=== PATIENT | male | born 1955 | race Caucasian/White ===

== ENCOUNTER 2022-08-07 07:50 | Outpatient (CLI) | payer OTHER, SELFPAY ==
--- NOTE | 2022-08-07 08:59 | PFTS_ITS ---
Date of Study:08/07/22 Date of Dictation: MECHANICS: Forced vital capacity (FVC) is . Forced expiratory volume in one second (FEV1) is . FEV1/FVC is . FLOW VOLUME LOOP: . LUNG VOLUMES: Total lung capacity (TLC) is . Residual volume (RV) is . DIFFUSING CAPACITY FOR CARBON MONOXIDE: . INTERPRETATION: The pulmonary function tests are . mechanics and lung volumes. Gas exchange (DLCO) is . MTDD
--- NOTE | 2022-08-07 14:25 | PFTS_ITS ---
Date of Study:08/07/22 Date of Dictation: MECHANICS: Forced vital capacity (FVC) is normal. Forced expiratory volume in one second (FEV1) is normal. FEV1/FVC is normal. FLOW VOLUME LOOP: Normal. LUNG VOLUMES: Total lung capacity (TLC) is normal. Residual volume (RV) is normal. DIFFUSING CAPACITY FOR CARBON MONOXIDE: Normal. INTERPRETATION: The prebronchodilator spirometry is normal. No postbronchodilator spirometry was performed. Lung volumes are normal. Gas exchange (DLCO) is normal. MTDD
== END 2022-08-07 07:51 | disposition home or self-care (01) ==
LOC: RT 07:51
PROVIDERS: PCP Electrodiagnostic Medicine; Visit Provider Electrodiagnostic Medicine
DX: R06.09 Other forms of dyspnea (principal)
CPT/HCPCS: 94010; 94726; 94729

== ENCOUNTER 2024-08-23 08:58 | Outpatient (CLI) | payer OTHER, SELFPAY | END 2024-08-23 08:59 | disposition home or self-care (01) | LOC: SLEEP 09:03 | PROVIDERS: PCP Electrodiagnostic Medicine; Visit Provider Electrodiagnostic Medicine | DX: G47.33 Obstructive sleep apnea (adult) (pediatric) (principal) | CPT/HCPCS: G0399 ==

== ENCOUNTER 2025-06-15 11:51 | Emergency (ER) | payer MEDICARE, BC, SELFPAY ==
--- OUTSIDE RECORDS SUMMARY | 2025-06-15 11:58 | XMS_ITS | Encounter Summary ---
Author Organization [facility] Address [address] [place] [address] Care Team Providers Care Pump House Technician Name Role Phone Vilma Harry MD Primary Care Provider Unavail able Encounter Details Date Type Department Care Team (Late st Contact Info) Description 05/17/2016 Lab Requisition [facility] Laboratory Services [address] 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 Gender Identity Not on file Sexual Orientation Not on file Occupation Industry Job Start Date Job End Date Not on file Not on file Not on file Not on file documented as of this encounter Plan of Treatment Not on file documented as of this encounter Procedures Procedure Name Priority Date/Time Associated Diagnosis Comments CBC WITH DIFFERENTIAL Routine 05/17/2016 5:37 AM CDT URIC ACID Routine 05/17/2016 5:37 AM CDT TSH Routine 05/17/2016 5:37 AM CDT IRON LEVEL Routine 05/17/2016 5:37 AM CDT LIPID PANEL Routine 05/17/2016 5:37 AM CDT COMPREHENSIVE METABOLIC PANEL Routine 05/17/2016 5:37 AM CDT documented in this encounter Results * URIC ACID (05/17/2016 5:37 AM CDT) [facility] URIC ACID 5.7 3.5 - 7.2 mg/dL 05/18/2016 9:44 AM CDT [facility] Blood Collection / Unknown 05/17/2016 5:37 AM CDT 05/17/2016 11:28 AM CDT Skyler Reyes MD CHEMISTRY ORDERABLES Final Res ult Performing Organization Address City/[facility]/ZIP Co de Phone Number [facility] CLIA# [id number] [address] [place] [address] * IRON LEVEL (05/17/2016 5:37 AM CDT) [facility] IRON 79 65 - 175 ug/dL 05/18/2016 9:44 AM CDT [facility] Blood Collection / Unknown 05/17/2016 5:37 AM CDT 05/17/2016 11:28 AM CDT Skyler Reyes MD CHEMISTRY ORDERABLES Final Res ult Performing Organization Address City/[facility]/ZIP Co de Phone Number [facility] CLIA# [id number] [facility] [place] [address] * (ABNORMAL) CBC WITH DIFFERENTIAL (05/17/2016 5:37 AM CDT) [facility] WBC 5.8 4.8 - 10.8 K/uL 05/17/2016 12:46 PM CDT [facility] RBC 4.92 4.60 - 6.20 M/uL 05/17/2016 12:46 PM CDT [facility] HEMOGLOBIN 15.4 14.0 - 18.0 g/dL 05/17/2016 12:46 PM CDT [facility] [employer] [facility] HEMATOCRIT 44.6 41.0 - 53.0 % 05/17/2016 12:46 PM [facility] MCV 90.7 84.0 - 103.0 fL 05/17/2016 12:46 PM [facility] MCH 31.3 27.0 - 34.0 pg 05/17/2016 12:46 PM [facility] MCHC 34.5 30.0 - 35.0 g/dL 05/17/2016 12:46 PM [facility] RDW 12.7 11.0 - 14.5 % 05/17/2016 12:46 PM [facility] RDW-STDEV 41.5 37.0 - 54.0 fL 05/17/2016 12:46 PM [facility] PLATELETS 218 140 - 440 K/uL 05/17/2016 12:46 PM [facility] MPV 11.1 8.9 - 12.8 fL 05/17/2016 12:46 PM [facility] NEUTROPHILS 47 42 - 75 % 05/17/2016 12:46 PM [facility] LYMPHOCYTES 33 24 - 44 % 05/17/2016 12:46 PM [facility] MONOCYTES 13(H) 2 - 10 % 05/17/2016 12:46 PM [facility] EOSINOPHILS 6 0 - 7 % 05/17/2016 12:46 PM [facility] BASOPHILS 1 0 - 1 % 05/17/2016 12:46 PM [facility] NEUTROPHIL ABSOLUTE 2.73 2.00 - 8.00 K/uL 05/17/2016 12:46 PM [facility] LYMPHOCYTE ABSOLUTE 1.92 1.20 - 4.00 K/uL 05/17/2016 12:46 PM [facility] MONOCYTE ABSOLUTE 0.74(H) 0.10 - 0.60 K/uL 05/17/2016 12:46 PM [facility] EOSINOPHIL ABSOLUTE 0.32 0.00 - 0.70 K/uL 05/17/2016 12:46 PM CDT [facility] BASOPHILS ABSOLUTE 0.04 0.00 - 0.20 K/uL 05/17/2016 12:46 PM CDT [facility] IMMATURE GRANULOCYTES 1 0 - 2 % 05/17/2016 12:46 PM CDT [facility] IMMATURE GRANULOCYTES ABSOLUTE 0.03 0.00 - 0.10 K/uL 05/17/2016 12:46 PM CDT [facility] Blood Collection / Unknown 05/17/2016 5:37 AM CDT 05/17/2016 11:28 AM CDT us Skyler Reyes MD HEMATOLOGY ORDERABLES Final Re sult Performing Organization Address [facility]/ZIP Co de Phone Number [facility] CLIA# [id number] [address] [place] [phone] * TSH (05/17/2016 5:37 AM CDT) Pathologist [facility] TSH 1.51 0.36 - 3.74 uIU/mL 05/18/2016 9:44 AM CDT [facility] Blood Collection / Unknown 05/17/2016 5:37 AM CDT 05/17/2016 11:28 AM CDT us Skyler Reyes MD CHEMISTRY ORDERABLES Final Res ult Performing Organization Address City/[facility] Co de Phone Number [facility] CLIA# [id number] [address] [place] [address] * (ABNORMAL) LIPID PANEL (05/17/2016 5:37 AM CDT) CHOLESTEROL 139 <200 mg/dL 05/18/2016 9:44 AM CDT [facility] TRIGLYCERIDE 289(H) <150 mg/dL 05/18/2016 9:44 AM CDT [facility] HDL 45 40 - 59 mg/dL 05/18/2016 9:44 AM CDT [facility] LDL CALCULATED 36 <100 mg/dL 05/18/2016 9:44 AM T [facility] NON-HDL CHOLESTEROL 94 <130 mg/dL 05/18/2016 9:44 AM T [facility] Blood Collection / Unknown 05/17/2016 5:37 AM CDT 05/17/2016 11:28 AM CDT [facility] - 05/18/2016 9:44 AM CDT TOTAL CHOLESTEROL mg/dL Desirable <200 Borderline high 200-239 High >=240 TRIGLYCERIDES mg/dL Normal <150 Borderline high 150-199 High 200-499 Very high >=500 HDL CHOLESTEROL mg/dL Low <40 Normal 40-59 Desirable >=60 LDL CHOLESTEROL mg/dL Optimal <100 Low risk 100-129 Borderline high 130-159 High 160-189 Very high >=190 NON HDL CHOLESTEROL mg/dL Optimal <130 Near Optimal 130-159 Borderline High 160-189 High 190-219 Very high >=220 Based on AHA/NCEP Guidelines Skyler Reyes MD CHEMISTRY ORDERABLES Final Res ult [facility] CLIA# [id number] [address] [place] [address] * (ABNORMAL) COMPREHENSIVE METABOLIC PANEL (05/17/2016 5:37 AM CDT) SODIUM 143 136 - 145 mmol/L 05/18/2016 9:44 AM CDT [facility] POTASSIUM 4.2 3.5 - 5.1 mmol/L 05/18/2016 9:44 AM T [facility] CHLORIDE 107 98 - 107 mmol/L 05/18/2016 9:44 AM T [facility] CO2 24 21 - 32 mmol/L 05/18/2016 9:44 AM T [facility] CALCIUM 9.1 8.4 - 10.1 mg/dL 05/18/2016 9:44 AM T [facility] BUN 21(H) 7 - 18 mg/dL 05/18/2016 9:44 AM [facility] CREATININE 1.23 0.70 - 1.30 mg/dL 05/18/2016 9:44 AM [facility] GLUCOSE 93 74 - 106 mg/dL 05/18/2016 9:44 AM [facility] TOTAL PROTEIN 7.2 6.4 - 8.2 g/dL 05/18/2016 9:44 AM [facility] ALBUMIN 4.6 3.4 - 5.0 g/dL 05/18/2016 9:44 AM [facility] BILIRUBIN TOTAL 0.6 0.2 - 1.0 mg/dL 05/18/2016 9:44 AM [facility] ALKALINE PHOSPHATASE 96 45 - 117 U/L 05/18/2016 9:44 AM [facility] AST 40(H) 15 - 37 U/L 05/18/2016 9:44 AM [facility] ALT 53 13 - 61 U/L 05/18/2016 9:44 AM [facility] GFR 60 >=60 mL/min/1.7 3 sq meter 05/18/2016 9:44 AM [facility] Comment: eGFR has not been validated for use in the elderly (> 70 years of age), women, patients with serious co-morbid conditions, or persons with extremes of body size or muscle mass and should also be interpreted with caution in patients with acute kidney failure, dialysis dependent patients, patients reporting exceptional dietary intake (e.g. vegetarian diet, high protein diets, creatine supplementation), and patients with severe liver disease. Based on National Kidney Disease Education Program If patient is , please refer to the GFR result. GFR, >60 >=60 mL/min/1.7 3 sq meter 05/18/2016 9:44 AM [facility] ANION GAP 12 4 - 30 mmol/L 05/18/2016 9:44 AM [facility] Blood Collection / Unknown 05/17/2016 5:37 AM CDT 05/17/2016 11:28 AM CDT Skyler Reyes MD CHEMISTRY ORDERABLES Final Res ult [facility] CLIA# [id number] [address] [place] [address] documented in this encounter Visit Diagnoses Not on filedocumented in this encounter Additional Health Concerns Infection Onset Date Last Indicated Resolved Time COVID-19 09/16/2020 09/16/2020 10/16/2020 8:09 PM 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
--- OUTSIDE RECORDS SUMMARY | 2025-06-15 11:58 | XMS_ITS | Encounter Summary ---
Author Organization [facility] Address [address] [place] [address] Care Team Providers Care Publications Editor Name Role Phone Vilma Harry MD Primary Care Provider Unavail able Encounter Details Date Type Department Care Team (Late st Contact Info) Description 05/19/2020 Lab Requisition [facility] Laboratory Services [address] 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 No / Unsure 05/05/2020 8:59 AM CDT documented as of this encounter Plan of Treatment Not on file documented as of this encounter Procedures Procedure Name Priority Date/Time Associated Diagnosis Comments CBC WITH DIFFERENTIAL Routine 05/19/2020 12:00 PM CDT URIC ACID Routine 05/19/2020 12:00 PM CDT TSH Routine 05/19/2020 12:00 PM CDT IRON LEVEL Routine 05/19/2020 12:00 PM CDT HEMOGLOBIN A1C Routine 05/19/2020 12:00 PM CDT LIPID PANEL Routine 05/19/2020 12:00 PM CDT COMPREHENSIVE METABOLIC PANEL Routine 05/19/2020 12:00 PM CDT documented in this encounter Results * IRON LEVEL (05/19/2020 12:00 PM CDT) Pathologist [facility] IRON 142 59 - 158 ug/dL 05/19/2020 5:43 PM CDT [facility] Blood Collection / Unknown 05/19/2020 12:00 PM CDT 05/19/2020 5:20 PM CDT Hector Gibson DO CHEMISTRY ORDERABLES Final R esult [facility] [address] [place] [address] * (ABNORMAL) HEMOGLOBIN A1C (05/19/2020 12:00 PM CDT) Pathologist [facility] HEMOGLOBIN A1C 6.2(H) <=5.6 % 05/23/2020 7:47 AM CDT [facility] EST. AVG GLUCOSE, A1C 131 mg/dL 05/23/2020 7:47 AM CDT [facility] Blood Collection / Unknown 05/19/2020 12:00 PM CDT 05/23/2020 7:02 AM CDT Narrative [facility] - 05/23/2020 7:47 AM CDT HGB A1C INTERPRETATION NORMAL: <5.7% PRE-DIABETES: 5.7 - 6.4% DIABETES: 6.5% OR GREATER Hector Gibson DO CHEMISTRY ORDERABLES Final R esult Performing Organization Address [facility]/ZIP Co de Phone Number [facility] [address] [place] [phone] * (ABNORMAL) URIC ACID (05/19/2020 12:00 PM CDT) URIC ACID 7.6(H) 3.4 - 7.0 mg/dL 05/19/2020 5:49 PM CDT [facility] Blood Collection / Unknown 05/19/2020 12:00 PM CDT 05/19/2020 5:20 PM CDT Hector Gibson DO CHEMISTRY ORDERABLES Final R esult Performing Organization Address [facility] de Phone Number [address] [place] [address] * (ABNORMAL) CBC WITH DIFFERENTIAL (05/19/2020 12:00 PM CDT) Pathologist [facility] WBC 6.2 4.8 - 10.8 K/uL 05/19/2020 5:07 PM CDT [facility] RBC 5.32 4.60 - 6.20 M/uL 05/19/2020 5:07 PM CDT [facility] HEMOGLOBIN 16.6 14.0 - 18.0 g/dL 05/19/2020 5:[address] [facility] [employer] [facility] HEMATOCRIT 47.6 41.0 - 53.0 % 05/19/2020 5:07 PM CDT [facility] MCV 89.5 84.0 - 103.0 fL 05/19/2020 5:07 PM CDT [facility] MCH 31.2 27.0 - 34.0 pg 05/19/2020 5:07 PM CDT [facility] MCHC 34.9 30.0 - 35.0 g/dL 05/19/2020 5:07 PM CDT [facility] RDW 12.4 11.0 - 14.5 % 05/19/2020 5:07 PM CDT [facility] RDW-STDEV 40.3 37.0 - 54.0 fL 05/19/2020 5:07 PM CDT [facility] PLATELETS 279 140 - 440 K/uL 05/19/2020 5:07 PM [facility] MPV 10.0 8.9 - 12.8 fL 05/19/2020 5:07 PM T [facility] NEUTROPHILS 41(L) 42 - 75 % 05/19/2020 5:07 PM [facility] LYMPHOCYTES 43 24 - 44 % 05/19/2020 5:07 PM T [facility] MONOCYTES 11(H) 2 - 10 % 05/19/2020 5:07 PM [facility] EOSINOPHILS 3 0 - 7 % 05/19/2020 5:07 PM [facility] BASOPHILS 1 0 - 1 % 05/19/2020 5:07 PM [facility] IMMATURE GRANULOCYTES 1 0 - 2 % 05/19/2020 5:07 PM [facility] NEUTROPHIL ABSOLUTE 2.51 2.00 - 8.00 K/uL 05/19/2020 5:07 PM [facility] LYMPHOCYTE ABSOLUTE 2.68 1.20 - 4.00 K/uL 05/19/2020 5:07 PM [facility] MONOCYTE ABSOLUTE 0.69(H) 0.10 - 0.60 K/uL 05/19/2020 5:07 PM [facility] EOS[facility] ABSOLUTE 0.21 0.00 - 0.70 K/uL 05/19/2020 5:07 PM [facility] BASOPHILS ABSOLUTE 0.04 0.00 - 0.20 K/uL 05/19/2020 5:07 PM [facility] IMMATURE GRANULOCYTES ABSOLUTE 0.04 0.00 - 0.10 K/uL 05/19/2020 5:07 PM [facility] Blood Collection / Unknown 05/19/2020 12:00 PM CDT 05/19/2020 5:04 PM CDT us Hector Gibson DO HEMATOLOGY ORDERABLES Final Result Performing Organization Address City/[facility]/ZIP Co de Phone Number [address] [address] * TSH (05/19/2020 12:00 PM CDT) TSH 2.39 0.27 - 4.20 uIU/mL 05/19/2020 5:49 PM CDT [facility] Blood Collection / Unknown 05/19/2020 12:00 PM CDT 05/19/2020 5:20 PM CDT us Hector Gibson DO CHEMISTRY ORDERABLES Final R esult Performing Organization Address [facility] Co de Phone Number [address] [address] * LIPID PANEL (05/19/2020 12:00 PM CDT) CHOLESTEROL 175 <200 mg/dL 05/19/2020 5:49 PM CDT [facility] TRIGLYCERIDE 140 <150 mg/dL 05/19/2020 5:49 PM CDT [facility] HDL 48 40 - 59 mg/dL 05/19/2020 5:49 PM CDT [facility] LDL CALCULATED 99 <100 mg/dL 05/19/2020 5:49 PM CDT [facility] NON-HDL CHOLESTEROL 127 <130 mg/dL 05/19/2020 5:49 PM CDT [facility] Blood Collection / Unknown 05/19/2020 12:00 PM CDT 05/19/2020 5:20 PM CDT Narrative [facility] LABORATORY [facility] - 05/19/2020 5:49 PM CDT TOTAL CHOLESTEROL mg/dL Desirable <200 Borderline high 200-239 High >=240 TRIGLYCERIDES mg/dL Normal <150 Borderline high 150-199 High 200-499 Very high >=500 HDL CHOLESTEROL mg/dL Low <40 Normal 40-59 Desirable >=60 NON HDL CHOLESTEROL mg/dL Optimal <130 Near Optimal 130-159 Borderline High 160-189 Very High >=190 CALCULATED LDL mg/dL LDL <70, OPTIMAL if have Atherosclerotic cardiovascular disease (ASCVD) or intermediate or higher (>7.5%) 10 year risk of ASCVD including most adults with diabetes. LDL <100, Optimal in adult patients with low (<7.5%) 10 year ASCVD risk LDL 100-160, Suboptimal LDL >160, High LDL >190, Very high ATPIII Guidelines Reference Ranges for Lipid Panels (NCEP/AMA) . Hector Gibson DO CHEMISTRY ORDERABLES Final R esult [facility] [address] [place], [place] [id number] * (ABNORMAL) COMPREHENSIVE METABOLIC PANEL (05/19/2020 12:00 PM CDT) SODIUM 142 136 - 145 mmol/L 05/19/2020 5:49 PM CDT [facility] POTASSIUM 3.8 3.5 - 5.1 mmol/L 05/19/2020 5:49 PM CDT [facility] CHLORIDE 103 98 - 107 mmol/L 05/19/2020 5:49 PM CDT [facility] CO2 25 22 - 29 mmol/L 05/19/2020 5:49 PM CDT [facility] CALCIUM 9.5 8.8 - 10.2 mg/dL 05/19/2020 5:49 PM CDT [facility] BUN 22 8 - 23 mg/dL 05/19/2020 5:49 PM CDT [facility] CREATININE 1.32(H) 0.67 - 1.17 mg/dL 05/19/2020 5:49 PM CDT [facility] GLUCOSE 114(H) 74 - 99 mg/dL 05/19/2020 5:49 PM CDT [facility] TOTAL PROTEIN 7.5 6.4 - 8.3 g/dL 05/19/2020 5:49 PM CDT [facility] ALBUMIN 4.6 3.5 - 5.2 g/dL 05/19/2020 5:49 PM CDT [facility] BILIRUBIN TOTAL 0.8 0.2 - 1.0 mg/dL 05/19/2020 5:49 PM CDT [facility] ALKALINE PHOSPHATASE 73 40 - 129 U/L 05/19/2020 5:49 PM CDT [facility] AST 34 10 - 50 U/L 05/19/2020 5:49 PM CDT [facility] ALT 35 <=50 U/L 05/19/2020 5:49 PM CDT [facility] GFR 55(L) >=60 mL/min/1. 73 sq meter 05/19/2020 5:49 PM CDT [facility] Comment: eGFR has not been validated for [...] to the GFR result. GFR, >60 >=60 mL/min/1. 73 sq meter 05/19/2020 5:49 PM CDT [facility] ANION GAP 14 9 - 20 mmol/L 05/19/2020 5:49 PM T [facility] Blood Collection / Unknown 05/19/2020 12:00 PM CDT 05/19/2020 5:20 PM CDT us Hector Gibson DO CHEMISTRY ORDERABLES Final R esult [facility] [address] [place], [place] [phone] documented in this encounter Visit Diagnoses Not on filedocumented in this encounter Additional Health Concerns Infection Onset Date Last Indicated Resolved Time COVID-19 09/16/2020 09/16/2020 10/16/2020 8:09 PM 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
--- OUTSIDE RECORDS SUMMARY | 2025-06-15 11:59 | XMS_ITS | Encounter Summary ---
Author Organization [facility] Address [address] [place] [address] Care Team Providers Care Club Steward Name Role Phone Vilma Harry MD Primary Care Provider Unavail able Encounter Details Date Type Department Care Team (Late st Contact Info) Description 05/20/2019 Lab Requisition [facility] [address] [place] 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 Gender Identity Not on file Sexual Orientation Not on file Occupation Industry Job Start Date Job End Date Not on file Not on file Not on file Not on file documented as of this encounter Plan of Treatment Not on file documented as of this encounter Procedures Procedure Name Priority Date/Time Associated Diagnosis Comments CBC WITH DIFFERENTIAL Routine 05/20/2019 5:36 AM CDT URIC ACID Routine 05/20/2019 5:36 AM CDT TSH Routine 05/20/2019 5:36 AM CDT IRON LEVEL Routine 05/20/2019 5:36 AM CDT LIPID PANEL Routine 05/20/2019 5:36 AM CDT COMPREHENSIVE METABOLIC PANEL Routine 05/20/2019 5:36 AM CDT documented in this encounter Results * URIC ACID (05/20/2019 5:36 AM CDT) Pathologist [facility] URIC ACID 5.3 3.4 - 7.0 mg/dL 05/20/2019 1:44 PM CDT [facility] Blood Collection / Unknown 05/20/2019 5:36 AM CDT 05/20/2019 11:47 AM CDT us Hector Gibson DO CHEMISTRY ORDERABLES Final R esult Performing Organization Address City/[facility]/ZIP Co de Phone Number [facility] CLIA# [id number] [address] [place] [address] * IRON LEVEL (05/20/2019 5:36 AM CDT) [facility] IRON 78 59 - 158 ug/dL 05/20/2019 3:08 PM CDT [facility] Blood Collection / Unknown 05/20/2019 5:36 AM CDT 05/20/2019 11:47 AM CDT us Hector Gibson DO CHEMISTRY ORDERABLES Final R esult [facility] CLIA# [id number] Counts include 234 beds at the [facility] [place] [address] * (ABNORMAL) CBC WITH DIFFERENTIAL (05/20/2019 5:36 AM CDT) [facility] WBC 5.5 4.8 - 10.8 K/uL 05/20/2019 12:08 PM CDT [facility] RBC 4.82 4.60 - 6.20 M/uL 05/20/2019 12:08 PM [facility] HEMOGLOBIN 14.8 14.0 - 18.0 g/dL 05/20/2019 12:08 PM [facility] HEMATOCRIT 42.6 41.0 - 53.0 % 05/20/2019 12:08 PM [facility] MCV 88.4 84.0 - 103.0 fL 05/20/2019 12:08 PM [facility] MCH 30.7 27.0 - 34.0 pg 05/20/2019 12:08 PM [facility] MCHC 34.7 30.0 - 35.0 g/dL 05/20/2019 12:08 PM [facility] RDW 12.1 11.0 - 14.5 % 05/20/2019 12:08 PM [facility] RDW-STDEV 39.3 37.0 - 54.0 fL 05/20/2019 12:08 PM [facility] PLATELETS 262 140 - 440 K/uL 05/20/2019 12:08 PM [facility] MPV 10.0 8.9 - 12.8 fL 05/20/2019 12:08 PM [facility] NEUTROPHILS 43 42 - 75 % 05/20/2019 12:08 PM [facility] LYMPHOCYTES 37 24 - 44 % 05/20/2019 12:08 PM [facility] [employer] [facility] MONOCYTES 13(H) 2 - 10 % 05/20/2019 12:08 PM [facility] [employer] [facility] EOSINOPHILS 7 0 - 7 % 05/20/2019 12:08 PM [facility] [employer] [facility] BASOPHILS 1 0 - 1 % 05/20/2019 12:08 PM [facility] IMMATURE GRANULOCYTES 1 0 - 2 % 05/20/2019 12:08 PM [facility] NEUTROPHIL ABSOLUTE 2.35 2.00 - 8.00 K/uL 05/20/2019 12:08 PM [facility] [employer] [facility] LYMPHOCYTE ABSOLUTE 2.02 1.20 - 4.00 K/uL 05/20/2019 12:08 PM CDT [facility] MONOCYTE ABSOLUTE 0.73(H) 0.10 - 0.60 K/uL 05/20/2019 12:08 PM CDT [facility] EOSINOPHIL ABSOLUTE 0.36 0.00 - 0.70 K/uL 05/20/2019 12:08 PM CDT [facility] BASOPHILS ABSOLUTE 0.04 0.00 - 0.20 K/uL 05/20/2019 12:08 PM CDT [facility] IMMATURE GRANULOCYTES ABSOLUTE 0.03 0.00 - 0.10 K/uL 05/20/2019 12:08 PM CDT [facility] Blood Collection / Unknown 05/20/2019 5:36 AM CDT 05/20/2019 11:47 AM CDT us Hector Gibson DO HEMATOLOGY ORDERABLES Final Result Performing Organization Address City/[facility] Co de Phone Number [facility] CLIA# [id number] [address] [place] [address] * TSH (05/20/2019 5:36 AM CDT) Pathologist [facility] TSH 3.98 0.27 - 4.20 uIU/mL 05/20/2019 1:44 PM CDT [facility] Blood Collection / Unknown 05/20/2019 5:36 AM CDT 05/20/2019 11:47 AM CDT us Hector Gibson DO CHEMISTRY ORDERABLES Final R esult Performing Organization Address City/[facility] Co de Phone Number [facility] CLIA# [id number] Counts include 234 beds at the [facility] [place] [address] * LIPID PANEL (05/20/2019 5:36 AM CDT) CHOLESTEROL 145 <200 mg/dL 05/20/2019 3:08 PM CDT [facility] TRIGLYCERIDE 136 <150 mg/dL 05/20/2019 3:08 PM CDT [facility] HDL 48 40 - 59 mg/dL 05/20/2019 3:08 PM CDT [facility] LDL CALCULATED 70 <100 mg/dL 05/20/2019 3:08 PM T [facility] NON-HDL CHOLESTEROL 97 <130 mg/dL 05/20/2019 3:08 PM T [facility] Blood Collection / Unknown 05/20/2019 5:36 AM CDT 05/20/2019 11:47 AM CDT [facility] - 05/20/2019 3:08 PM CDT TOTAL CHOLESTEROL mg/dL Desirable <200 Borderline high 200-239 High >=240 TRIGLYCERIDES mg/dL Normal <150 Borderline high 150-199 High 200-499 Very high >=500 HDL CHOLESTEROL mg/dL Low <40 Normal 40-59 Desirable >=60 NON HDL CHOLESTEROL mg/dL Optimal <130 Near Optimal 130-159 Borderline High 160-189 Very High >=190 Calculated LDL mg/dL Optimal <100 Near Optimal 100-129 Borderline High 130-159 High 160-189 Very High >=190 ATPIII Guidelines Reference Ranges for Lipid Panels (NCEP/AMA) Hector Gibson DO CHEMISTRY ORDERABLES Final R esult [facility] CLIA# [id number] [address] [place] [address] * COMPREHENSIVE METABOLIC PANEL (05/20/2019 5:36 AM CDT) SODIUM 141 136 - 145 mmol/L 05/20/2019 1:44 PM CDT [facility] POTASSIUM 4.0 3.5 - 5.1 mmol/L 05/20/2019 1:44 PM CDT [facility] CHLORIDE 102 98 - 107 mmol/L 05/20/2019 1:44 PM CDT [facility] CO2 26 22 - 29 mmol/L 05/20/2019 1:44 PM CDT [facility] CALCIUM 9.0 8.8 - 10.2 mg/dL 05/20/2019 1:44 PM [facility] BUN 17 8 - 23 mg/dL 05/20/2019 1:44 PM [facility] CREATININE 1.15 0.67 - 1.17 mg/dL 05/20/2019 1:44 PM [facility] GLUCOSE 93 74 - 99 mg/dL 05/20/2019 1:44 PM [facility] TOTAL PROTEIN 7.1 6.4 - 8.3 g/dL 05/20/2019 1:44 PM [facility] ALBUMIN 4.6 3.5 - 5.2 g/dL 05/20/2019 1:44 PM [facility] BILIRUBIN TOTAL 0.4 0.2 - 1.0 mg/dL 05/20/2019 1:44 PM [facility] ALKALINE PHOSPHATASE 89 40 - 129 U/L 05/20/2019 1:44 PM [facility] AST 35 10 - 50 U/L 05/20/2019 1:44 PM [facility] ALT 40 <=50 U/L 05/20/2019 1:44 PM [facility] GFR >60 >=60 mL/min/1.7 3 sq meter 05/20/2019 1:44 PM [facility] Comment: eGFR has not been validated for [...] GFR, >60 >=60 mL/min/1.7 3 sq meter 05/20/2019 1:44 PM [facility] ANION GAP 13 9 - 20 mmol/L 05/20/2019 1:44 PM [facility] Blood Collection / Unknown 05/20/2019 5:36 AM CDT 05/20/2019 11:47 AM CDT Hector Gibson DO CHEMISTRY ORDERABLES Final R esult [facility]# [id number] Counts include 234 beds at the [facility] [place] [address] documented in this encounter Visit Diagnoses Not on filedocumented in this encounter Additional Health Concerns Infection Onset Date Last Indicated Resolved Time COVID-19 09/16/2020 09/16/2020 10/16/2020 8:09 PM LEASE BROKER R/O COVID-19 03/30/2021 03/30/2021 03/30/2021 7:26 PM CDT documented as of this encounter Care Teams Club Steward Relationship Specialty Start Date End Date Vilma Harry MD PCP - General Internal Medicine 11/04/17 documented as of this encounter
--- OUTSIDE RECORDS SUMMARY | 2025-06-15 11:59 | XMS_ITS | Encounter Summary ---
Author Organization [facility] Address [address] [place] [address] Care Team Providers Care Starcher And Tenter Range Feeder Name Role Phone Vilma Harry MD Primary Care Provider Unavail able Encounter Details Date Type Department Care Team (Latest Contact Info) Description 03/14/2004 Outpatient Historical [facility] Spec [facility] [place] [address] [facility] [address] [place] [address] Musa Coello MD NO ADDRESS ON FILE ESOPHAGEAL REFLUX (Primary Dx) Social History Tobacco Use Types Packs/Day Years Used Date Smoking Tobacco: Never Assessed Sex and Gender Information Value Date Recorded Sex Assigned at Not on file Legal Sex Male 4:40 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 OPERATOR Gender Identity Not on file Sexual Orientation Not on file documented as of this encounter Plan of Treatment Not on file documented as of this encounter Visit Diagnoses Diagnosis Esophageal reflux- Primary documented in this encounter Additional Health Concerns Infection Onset Date Last Indicated Resolved Time COVID-19 09/16/2020 09/16/2020 10/16/2020 8:09 PM ANGLEDOZER OPERATOR R/O COVID-19 03/30/2021 03/30/2021 03/30/2021 7:26 PM CDT documented as of this encounter Care Teams Starcher And Tenter Range Feeder Relationship Specialty Start Date End Date Vilma Harry MD PCP - General Internal Medicine 11/04/17 documented as of this encounter
--- OUTSIDE RECORDS SUMMARY | 2025-06-15 11:59 | XMS_ITS | Encounter Summary ---
Author Organization [facility] Address [address] [place] [address] Care Team Providers Care Community Service Technician Name Role Phone Vilma Harry MD Primary Care Provider Unavail able Encounter Details Date Type Department Care Team (Late st Contact Info) Description 08/13/2005 Outpatient Historical [facility] [place] [address] [place] [address] Jose Russo MD NO ADDRESS ON FILE DIAPHRAGMATIC HERNIA (Primary Dx) Social History Tobacco Use Types Packs/Day Years Used Date Smoking Tobacco: Never Assessed Sex and Gender Information Value Date Recorded Sex Assigned at Not on file 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 Gender Identity Not on file Sexual Orientation Not on file documented as of this encounter Plan of Treatment Not on file documented as of this encounter Visit Diagnoses Diagnosis Diaphragmatic hernia without mention of obstruction or gangrene- Primary documented in this encounter Additional Health Concerns Infection Onset Date Last Indicated Resolved Time COVID-19 09/16/2020 09/16/2020 10/16/2020 8:09 PM SALES TEAM LEADER R/O COVID-19 03/30/2021 03/30/2021 03/30/2021 7:26 PM CDT documented as of this encounter Care Teams Community Service Technician Relationship Specialty Start Date End Date Vilma Harry MD PCP - General Internal Medicine 11/04/17 documented as of this encounter
--- OUTSIDE RECORDS SUMMARY | 2025-06-15 11:59 | XMS_ITS | Encounter Summary ---
Author Organization [employer] Address [address] [place] [address] Care Team Providers Care Spraying Machine Operator Name Role Phone Vilma Harry MD Primary Care Provider Unavail able Encounter Details Date Type Department Care Team (Latest Contact Info) Description 12/10/1999 Outpatient Historical [facility] Jason Lepe MD [address] [facility] [address] [place] [address] Other malignant neoplasm of skin, site unspecified (Primary Dx) Social History Tobacco Use Types Packs/Day Years Used Date Smoking Tobacco: Never Assessed Sex and Gender Information Value Date Recorded Sex Assigned at Not on file Legal Sex Male 4:40 AM COMMUNITY RELATIONS DIRECTOR Gender Identity Not on file Sexual Orientation Not on file documented as of this encounter Plan of Treatment Not on file documented as of this encounter Visit Diagnoses Diagnosis Other malignant neoplasm of skin, site unspecified- Primary documented in this encounter Additional Health Concerns Infection Onset Date Last Indicated Resolved Time COVID-19 09/16/2020 09/16/2020 10/16/2020 8:09 PM COMMUNITY RELATIONS DIRECTOR R/O COVID-19 03/30/2021 03/30/2021 03/30/2021 7:26 PM CDT documented as of this encounter Care Teams Spraying Machine Operator Relationship Specialty Start Date End Date Vilma Harry MD PCP - General Internal Medicine 11/04/17 documented as of this encounter
--- OUTSIDE RECORDS SUMMARY | 2025-06-15 11:59 | XMS_ITS | Encounter Summary ---
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 Sex Male 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 Gender Identity Not on file Sexual Orientation Not on file documented as of this encounter Plan of Treatment Not on file documented as of this encounter Visit Diagnoses Diagnosis Esophageal reflux- Primary documented in this encounter Additional Health Concerns Infection Onset Date Last Indicated Resolved Time COVID-19 09/16/2020 09/16/2020 10/16/2020 8:09 PM WATER JET LOOM FIXER R/O COVID-19 03/30/2021 03/30/2021 03/30/2021 7:26 PM CDT documented as of this encounter Care Teams Fish Filleter Relationship Specialty Start Date End Date Vilma Harry MD PCP - General Internal Medicine 11/04/17 documented as of this encounter
--- OUTSIDE RECORDS SUMMARY | 2025-06-15 11:59 | XMS_ITS | Encounter Summary ---
Author Organization [facility] Address [address] [place] [address] Care Team Providers Care Slackline Operator Name Role Phone Vilma Harry MD Primary Care Provider Unavail able Encounter Details Date Type Department Care Team (Latest Contact Info) Description 11/24/2000 Outpatient Historical [facility] Jose Luis Fajardo MD [address] [place] [address] Bronchitis, not specified as acute or chronic (Primary Dx); Acute sinusitis, unspecified Social History Tobacco Use Types Packs/Day Years Used Date Smoking Tobacco: Never Assessed Sex and Gender Information Value Date Recorded Sex Assigned at Not on file Legal Sex Male 4:40 AM HOSPITALIST PROGRAM DIRECTOR Gender Identity Not on file Sexual Orientation Not on file documented as of this encounter Plan of Treatment Not on file documented as of this encounter Visit Diagnoses Diagnosis Bronchitis, not specified as acute or chronic- Primary Acute sinusitis, unspecified documented in this encounter Additional Health Concerns Infection Onset Date Last Indicated Resolved Time COVID-19 09/16/2020 09/16/2020 10/16/2020 8:09 PM HOSPITALIST PROGRAM DIRECTOR R/O COVID-19 03/30/2021 03/30/2021 03/30/2021 7:26 PM CDT documented as of this encounter Care Teams Slackline Operator Relationship Specialty Start Date End Date Vilma Harry MD PCP - General Internal Medicine 11/04/17 documented as of this encounter
--- OUTSIDE RECORDS SUMMARY | 2025-06-15 11:59 | XMS_ITS | Encounter Summary ---
Author Organization [facility] Address [address] [place] [address] Care Team Providers Care Balance Staff Inspector Name Role Phone Vilma Harry MD Primary Care Provider Unavail able Encounter Details Date Type Department Care Team (Latest Contact Info) Description 07/16/1999 Outpatient Historical [facility] Jose Luis Fajardo MD [address] [place] [address] Nonallopathic lesion of cervical region, not elsewhere classified (Primary Dx); Nonallopathic lesion of thoracic region, not elsewhere classified; Nonallopathic lesion of lumbar region, not elsewhere classified; Open wound of knee, leg (except thigh), and ankle, without mention of complication Social History Tobacco Use Types Packs/Day Years Used Date Smoking Tobacco: Never Assessed Sex and Gender Information Value Date Recorded Sex Assigned at Not on file Legal Sex Male 4:40 AM TOOL RADIAL DRILL PRESS SET UP OPERATOR Gender Identity Not on file Sexual Orientation Not on file documented as of this encounter Plan of Treatment Not on file documented as of this encounter Visit Diagnoses Diagnosis Nonallopathic lesion of cervical region, not elsewhere classified- Primary Nonallopathic lesion of thoracic region, not elsewhere classified Nonallopathic lesion of lumbar region, not elsewhere classified Open wound of knee, leg (except thigh), and ankle, without mention of complication documented in this encounter Additional Health Concerns Infection Onset Date Last Indicated Resolved Time COVID-19 09/16/2020 09/16/2020 10/16/2020 8:09 PM TOOL RADIAL DRILL PRESS SET UP OPERATOR R/O COVID-19 03/30/2021 03/30/2021 03/30/2021 7:26 PM CDT documented as of this encounter Care Teams Balance Staff Inspector Relationship Specialty Start Date End Date Vilma Harry MD PCP - General Internal Medicine 11/04/17 documented as of this encounter
--- OUTSIDE RECORDS SUMMARY | 2025-06-15 11:59 | XMS_ITS | Encounter Summary ---
Author Organization [facility] Address [address] [place] [address] Care Team Providers Care Cut Off Saw Tender Metal Name Role Phone Vilma Harry MD Primary Care Provider Unavail able Encounter Details Date Type Department Care Team (Latest Contact Info) Description 08/23/2004 Outpatient [facility] Care [facility] [address] [place] [address] Aaron Almanzar PA [address] [place], [place] [address] UNSPECIFIED VIRAL INFECTION (Primary Dx) Social History Tobacco Use Types Packs/Day Years Used Date Smoking Tobacco: Never Assessed Sex and Gender Information Value Date Recorded Sex Assigned at Not on file Legal Sex Male 4:40 AM HISTORIOGRAPHY PROFESSOR Gender Identity Not on file Sexual Orientation Not on file documented as of this encounter Plan of Treatment Not on file documented as of this encounter Visit Diagnoses Diagnosis Unspecified viral infection, in conditions classified elsewhere and of unspecified site- Primary documented in this encounter Additional Health Concerns Infection Onset Date Last Indicated Resolved Time COVID-19 09/16/2020 09/16/2020 10/16/2020 8:09 PM HISTORIOGRAPHY PROFESSOR R/O COVID-19 03/30/2021 03/30/2021 03/30/2021 7:26 PM CDT documented as of this encounter Care Teams Cut Off Saw Tender Metal Relationship Specialty Start Date End Date Vilma Harry MD PCP - General Internal Medicine 11/04/17 documented as of this encounter
--- OUTSIDE RECORDS SUMMARY | 2025-06-15 11:59 | XMS_ITS | Encounter Summary ---
Author Organization [facility] Address [address] [place] [address] Care Team Providers Care Developmental Training Counselor Name Role Phone Vilma Harry MD Primary Care Provider Unavail able Encounter Details Date Type Department Care Team (Late st Contact Info) Description 07/09/2005 Outpatient Historical [facility] [place] [address] [place] [address] Jose Russo MD NO ADDRESS ON FILE [place], BLOOD IN STOOL (Primary Dx) Social History Tobacco Use Types Packs/Day Years Used Date Smoking Tobacco: Never Assessed Sex and Gender Information Value Date Recorded Sex Assigned at Not on file Legal Sex Male 4:40 AM [employer] Gender Identity Not on file Sexual Orientation Not on file documented as of this encounter Plan of Treatment Not on file documented as of this encounter Visit Diagnoses Diagnosis Blood in stool- Primary documented in this encounter Additional Health Concerns Infection Onset Date Last Indicated Resolved Time COVID-19 09/16/2020 09/16/2020 10/16/2020 8:09 PM [employer] R/O COVID-19 03/30/2021 03/30/2021 03/30/2021 7:26 PM CDT documented as of this encounter Care Teams Developmental Training Counselor Relationship Specialty Start Date End Date Vilma Harry MD PCP - General Internal Medicine 11/04/17 documented as of this encounter
--- OUTSIDE RECORDS SUMMARY | 2025-06-15 11:59 | XMS_ITS | Encounter Summary ---
Author Organization [facility] Address [address] [place] [address] Care Team Providers Care Aoc Plans Intelligence Officer Chief Name Role Phone Vilma Harry MD Primary Care Provider Unavail able Encounter Details Date Type Department Care Team (Latest Contact Info) Description 02/15/2004 Outpatient Historical [facility] Spec [facility] [place] [address] [facility] [address] [place] [address] Musa Coello MD NO ADDRESS ON FILE DYSKINESIA OF ESOPHAGUS (Primary Dx) Social History Tobacco Use Types Packs/Day Years Used Date Smoking Tobacco: Never Assessed Sex and Gender Information Value Date Recorded Sex Assigned at Not on file Legal Sex Male 4:40 AM OVENS SUPERVISOR Gender Identity Not on file Sexual Orientation Not on file documented as of this encounter Plan of Treatment Not on file documented as of this encounter Visit Diagnoses Diagnosis Dyskinesia of esophagus- Primary documented in this encounter Additional Health Concerns Infection Onset Date Last Indicated Resolved Time COVID-19 09/16/2020 09/16/2020 10/16/2020 8:09 PM OVENS SUPERVISOR R/O COVID-19 03/30/2021 03/30/2021 03/30/2021 7:26 PM CDT documented as of this encounter Care Teams Aoc Plans Intelligence Officer Chief Relationship Specialty Start Date End Date Vilma Harry MD PCP - General Internal Medicine 11/04/17 documented as of this encounter
--- OUTSIDE RECORDS SUMMARY | 2025-06-15 11:59 | XMS_ITS | Encounter Summary ---
Author Organization [facility] Address [address] [place] [address] Care Team Providers Care Lead Nuclear Medicine Technologist Name Role Phone Vilam Harry MD Primary Care Provider Unavail able Encounter Details Date Type Department Care Team (Latest Contact Info) Description 10/22/1999 Outpatient Historical [facility] Dann Roberson NO ADDRESS ON FILE Attention to dressings and sutures (Primary Dx) Social History Tobacco Use Types Packs/Day Years Used Date Smoking Tobacco: Never Assessed Sex and Gender Information Value Date Recorded Sex Assigned at Not on file 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 Sex Male 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 Gender Identity Not on file Sexual Orientation Not on file documented as of this encounter Plan of Treatment Not on file documented as of this encounter Visit Diagnoses Diagnosis Attention to dressings and sutures- Primary documented in this encounter Additional Health Concerns Infection Onset Date Last Indicated Resolved Time COVID-19 09/16/2020 09/16/2020 10/16/2020 8:09 PM RETAIL SALES PROFESSIONAL R/O COVID-19 03/30/2021 03/30/2021 03/30/2021 7:26 PM CDT documented as of this encounter Care Teams Lead Nuclear Medicine Technologist Relationship Specialty Start Date End Date Vilma Harry MD PCP - General Internal Medicine 11/04/17 documented as of this encounter
--- OUTSIDE RECORDS SUMMARY | 2025-06-15 11:59 | XMS_ITS | Encounter Summary ---
Author Organization [facility] Address [address] [place] [address] Care Team Providers Care Automobile Parts Assembler Name Role Phone Vilma Harry MD Primary Care Provider Unavail able Encounter Details Date Type Department Care Team (Latest Contact Info) Description 10/09/1999 Outpatient Historical [facility] Jose Luis Fajardo MD [address] [place] [address] CA in situ skin trunk (Primary Dx) Social History Tobacco Use Types Packs/Day Years Used Date Smoking Tobacco: Never Assessed Sex and Gender Information Value Date Recorded Sex Assigned at Not on file Legal Sex Male 4:40 AM COUPON CLERK Gender Identity Not on file Sexual Orientation Not on file documented as of this encounter Plan of Treatment Not on file documented as of this encounter Visit Diagnoses Diagnosis 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
--- OUTSIDE RECORDS SUMMARY | 2025-06-15 11:59 | XMS_ITS | Clinical Summary ---
Author Organization [facility] Address [address] [place] [address] Care Team Providers Care Front Office Representative Name Role Phone Vilma Harry MD Primary Care Provider Unavail able Allergies Active Allergy Reactions Criticality Noted Date Comments Erythromycin Hives High 09/11/2009 Shrimp Shortness of Breath/Wheezing,Swelling High 11/06/2015 Medications clotrimazole-be tamethasone (LOTRISONE) 1-0.05 % Lotion Apply to affected areas on legs twice a day. 30 mL 2 0 Active naproxen (NAPROSYN) 500 mg tablet Take 1 Tablet (500 mg) by mouth 2 times daily with meals. 60 Tablet 1 1 Active albuterol HFA 90 mcg inhaler Take 2 Puffs by inhalation every 6 hours as needed for Shortness of Breath. 6.7 Gram 3 1 Active azelastine (ASTELIN) 137 mcg/actuation nasal spray Administer 2 Sprays in each nostril daily. 30 mL 0 1 Active esomeprazole (NexIUM) 20 mg Capsule, Delayed Release(E.C.) Take 20 mg by mouth daily before breakfast. 1 Active amLODIPine (NORVASC) 10 mg tablet Take 1 tablet by mouth once daily 90 Tablet 1 1 Active predniSONE (DELTASONE) 10 mg tablet Prednisone 10mg 4 tabs for 2days; then 3 tabs for 2 days; 2 tabs for 2 days; 1 tab for 2 days then 1/2 tab for 2 days then off 21 Tablet 1 Active amoxicillin-cla vulanate (AUGMENTIN) 875-125 mg tablet Take 1 Tablet by mouth every 12 hours. 10 Tablet 1 Active HYDROCHLOROTHIA ZIDE 25 mg tablet Take 1 tablet by mouth once daily with breakfast 90 Tablet 1 2 Active imipramine HCl (TOFRANIL) 50 mg tablet TAKE 1 TABLET BY MOUTH ONCE DAILY AT BEDTIME 90 Tablet 1 2 Active naproxen (NAPROSYN) 500 mg tablet TAKE 1 TABLET BY MOUTH TWICE DAILY WITH MEALS 60 Tablet 1 2 Active fenofibric acid (TRILIPIX) 45 mg Capsule, Delayed Release(E.C.) Take 1 Capsule (45 mg) by mouth daily. 90 Capsule 1 2 Active atorvastatin (LIPITOR) 40 mg tablet TAKE 1/2 (ONE-HALF) TABLET BY MOUTH ONCE DAILY LATE IN THE DAY 45 Tablet 3 2 Active Active Problems Problem Noted Date Diagnosed Date Prediabetes 10/05/2021 Reactive airway disease 01/28/2019 Hypertriglyceridemia 11/19/2016 Essential hypertension 06/03/2016 Esophageal spasm 05/02/2016 Family history of colon cancer, recheck colon du e 03/202306/08/2015 Allergic rhinitis due to allergen 03/24/2015 Dupuytren's contracture of right hand 11/22/2013 Lateral epicondylitis of elbow 12/31/2012 Carpal tunnel syndrome 06/30/2012 Trigger ring finger of right hand 06/30/2012 Back pain 11/26/2011 Cervical neck pain with evidence of disc disease 10/26/2011 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 Resolved Problems Problem Noted Date Diagnosed Date Resolved Date Patellar tendonitis of left knee, MRI 2016 02/11/2017 10/05/2021 Mixed hyperlipidemia 06/03/2016 017 Ulnar neuropathy at elbow, left 04/26/2013 10/05/2021 Dysfunction of right eustachian tube 03/16/2013 07/20/2013 Acute serous otitis media 03/16/2013 Foot pain 03/11/2013 07/20/2013 Trigger finger (acquired), S /P release right small finger 02/11/13 02/24/2013 07/20/2013 Allergic rhinitis 01/25/2012 03/24/2015 Acute sinusitis 11/26/2011 07/20/2013 Acute URI 11/26/2011 07/20/2013 Spasm of muscle 10/26/2011 07/20/2013 Hyperlipidemia 05/21/2010 06/03/2016 Epistaxis 01/23/2010 07/20/2013 Overview (02/21/2021): Requiring cauterization x 2. Rec that pt get Afrin for home use in case of nosebleeds. Immunizations Immunization Administration Dates Next Due (ADACEL/BOOSTRIX)(10 YR UP) TDAP VACCINE, 0.5ML, IM 08/20/2012 Influenza Seasonal Unspecified Formulation IM Influenza Vaccine 18+ C.derived Pf Im 09/06/2019 Family History Medical History Relation Name Comments Colon Cancer Father Cancer Mother ovarian Relation Name Status Comments Father Alive Mother Alive Social History Tobacco Use Types Packs/Day Years Used Date Smoking Tobacco: Never Smokeless Tobacco: Never Alcohol Use Standard Drinks/Week Comments No 0 (1 standard drink = 0.6 oz pur e alcohol) Sex and Gender Information Value Date Recorded Sex Assigned at Not on file Legal Sex Male 8:38 AM DIRECTOR OF PURCHASING Gender Identity Not on file Sexual Orientation Not on file Last Filed Vital Signs Vital Sign Reading Time Taken Comments Blood Pressure 138/74 10/05/2021 7:35 AM DIRECTOR OF PURCHASING Pulse 81 10/05/2021 7:35 AM DIRECTOR OF PURCHASING Temperature 36.7 C (98 F) 10/05/2021 7:35 AM DIRECTOR OF PURCHASING Respiratory Rate 16 10/17/2020 11:15 AM DIRECTOR OF PURCHASING Oxygen Saturation 98% 10/05/2021 7:35 AM DIRECTOR OF PURCHASING Inhaled Oxygen Concentration - - Weight 101.2 kg (223 lb) 10/05/2021 7:35 AM DIRECTOR OF PURCHASING Height 182.9 cm (6') 10/05/2021 7:35 AM DIRECTOR OF PURCHASING Body Mass Index 30.24 10/05/2021 7:35 AM DIRECTOR OF PURCHASING Plan of Treatment Health Maintenance Due Date Last Done Comments PNEUMOCOCCAL VACCINE 50+ YEA RS (1 of 2 - PCV) 1976 FIT-DNA Q 3 years 2002 Flex Sig/CT Colonography Q 5 years 2002 ZOSTER VACCINE (1 of 2) 2007 FIT/FOBT Q 1 year 08/14/2016 08/14/2015 RSV VACCINE (60+ or ) (1 - Risk 60-74 years 1-dose series) 2017 DTAP/TDAP/TD VACCINES (2 - T d or Tdap) 08/20/2022 08/20/2012 COLORECTAL SCREENING 03/27/2023 03/27/2018, 03/27/2018, 03/27/2018, Additional history exists Colorectal Cancer Screening 03/27/2023 INFLUENZA VACCINE (#1) 2025 08/04/2020, 2018 Procedures Procedure Name Priority Date/Time Associated Diagnosis Comments COLONOSCOPY REPORT Routine 03/27/2018 11 :45 AM CDT POC OCCULT BLOOD UP TO 3 CARDS Routine 08/14/2015 9:00 AM CDT from Last 3 Months or Most Recently Relevant to Health Maintenance Results * COLONOSCOPY REPORT (03/27/2018 11:45 AM CDT) 03/27/2018 11:4 5 AM CDT Narrative Procedure Note Keith Penaloza MD - 03/27/2018 11:44 AM CDT Procedures signed by Keith Penaloza MD at 03/27/2018 11:44 AM Author: Keith Penaloza MD Service: -- Author Type: Physician Filed: 03/27/2018 11:44 AM Date of Service: 03/27/2018 11:44 AM Status:Signed Radio Journalist: Keith Penaloza MD (Physician) Procedure Orders 1. COLONOSCOPY REPORT [[id number]] ordered by Keith Penaloza MD at03/27/18 [facility] GI Patient Name: William Hudson Procedure Date: 03/27/2018 Date of : 1955 Admit Type: Outpatient Age: 62 Attending MD: Keith Penaloza MD Procedure: Colonoscopy Indications: Screening in patient at increased risk: Family history of 1st-degree relative with colorectal cancer Providers: Keith Penaloza MD Referring MD: Vilma Harry MD Medicines: Midazolam 2 mg IV Complications: No immediate complications. Procedure: After I obtained informed consent, the scope was passed under direct vision. Throughout the procedure, the patient's blood pressure, pulse, and oxygen saturations were monitored continuously. The Colonoscope was introduced through the anus and advanced to the cecum, identified by appendiceal orifice and ileocecal valve. The colonoscopy was performed without difficulty. The patient tolerated the procedure well. The quality of the bowel preparation was adequate. Estimated Blood Loss: Estimated blood loss: none. Findings: The perianal and digital rectal examinations were normal. The colon (entire examined portion) appeared normal. Impression: - The entire examined colon is normal. - No specimens collected. Recommendation: - Repeat colonoscopy in 5 years for screening purposes. Keith Penaloza MD 03/27/2018 11:44:25 AM Number of Addenda: 0 Note Initiated On: 03/27/2018 11:21 AM Scope Withdrawal Time 0 hours 6 minutes 31 seconds Scope In: 11:27:37 AM Scope Out: 11:39:40 AM [address] [place] Keith Penaloza MD GI PROCEDURE ORDERABLES Final R esult [facility] * POC OCCULT BLOOD UP TO 3 CARDS (08/14/2015 9:00 AM CDT) OCCULT BLOOD #1 Negative Negative 08/14/2015 12:44 PM CDT [facility] OCCULT BLOOD #2 Negative Negative 08/14/2015 12:44 PM CDT [facility] OCCULT BLOOD #3 Negative Negative 08/14/2015 12:44 PM CDT [facility] Stool 08/14/2015 9:00 AM CDT us Vilma Harry MD POINT OF CARE TESTING Edited R esult - Final [facility] from Last 3 Months or Most Recently Relevant to Health Maintenance Insurance [facility] [id number] POS II [employer] Care Teams Front Office Representative Relationship Specialty Start Date End Date Vilma Harry MD PCP - General Internal Medicine 11/04/17
--- OUTSIDE RECORDS SUMMARY | 2025-06-15 11:59 | XMS_ITS | Encounter Summary ---
Author Organization [facility] Address [address] [place] [address] Care Team Providers Care Screw Machine Tool Setter Name Role Phone Vilma Harry MD Primary Care Provider Unavail able Encounter Details Date Type Department Care Team (Late st Contact Info) Description 08/13/2005 Outpatient Historical [facility] [place] [address] [place] [address] Jose Russo MD NO ADDRESS ON FILE FOLLOW-UP EXAM NOS (Primary Dx) Social History Tobacco Use Types Packs/Day Years Used Date Smoking Tobacco: Never Assessed Sex and Gender Information Value Date Recorded Sex Assigned at Not on file Legal Sex Male 4:40 AM STORES NAVAL Gender Identity Not on file Sexual Orientation Not on file documented as of this encounter Plan of Treatment Not on file documented as of this encounter Visit Diagnoses Diagnosis Unspecified follow-up examination- Primary documented in this encounter Additional Health Concerns Infection Onset Date Last Indicated Resolved Time COVID-19 09/16/2020 09/16/2020 10/16/2020 8:09 PM STORES NAVAL R/O COVID-19 03/30/2021 03/30/2021 03/30/2021 7:26 PM CDT documented as of this encounter Care Teams Screw Machine Tool Setter Relationship Specialty Start Date End Date Vilma Harry MD PCP - General Internal Medicine 11/04/17 documented as of this encounter
--- OUTSIDE RECORDS SUMMARY | 2025-06-15 11:59 | XMS_ITS | Encounter Summary ---
Author Organization [facility] Address [address] [place] [address] Care Team Providers Care Heart Doctor Name Role Phone Vilma Harry MD Primary Care Provider Unavail able Encounter Details Date Type Department Care Team (Latest Contact Info) Description 07/09/1999 Outpatient Historical [facility] Jose Luis Fajardo MD [address] [place] [address] Attention to dressings and sutures (Primary Dx); Sprain of neck; Nonallopathic lesion of abdomen and other sites, not elsewhere classified Social History Tobacco Use Types Packs/Day Years Used Date Smoking Tobacco: Never Assessed Sex and Gender Information Value Date Recorded Sex Assigned at Not on file Legal Sex Male 4:40 AM SUPERVISOR PHOTOENGRAVING Gender Identity Not on file Sexual Orientation Not on file documented as of this encounter Plan of Treatment Not on file documented as of this encounter Visit Diagnoses Diagnosis Attention to dressings and sutures- Primary Sprain of neck Neck sprain and strain Nonallopathic lesion of abdomen and other sites, not elsewhere classified documented in this encounter Additional Health Concerns Infection Onset Date Last Indicated Resolved Time COVID-19 09/16/2020 09/16/2020 10/16/2020 8:09 PM SUPERVISOR PHOTOENGRAVING R/O COVID-19 03/30/2021 03/30/2021 03/30/2021 7:26 PM CDT documented as of this encounter Care Teams Heart Doctor Relationship Specialty Start Date End Date Vilma Harry MD PCP - General Internal Medicine 11/04/17 documented as of this encounter
--- OUTSIDE RECORDS SUMMARY | 2025-06-15 11:59 | XMS_ITS | Encounter Summary ---
Author Organization [facility] Address [address] [place] [address] Care Team Providers Care Learning Analyst Name Role Phone Vilma Harry MD Primary Care Provider Unavail able Encounter Details Date Type Department Care Team (Latest Contact Info) Description 01/08/2000 Outpatient Historical [facility] Jose Luis Fajardo MD [address] [place] [address] Dyspepsia and other specified disorders of function of stomach (Primary Dx); Esophageal reflux Social History Tobacco Use Types Packs/Day Years Used Date Smoking Tobacco: Never Assessed Sex and Gender Information Value Date Recorded Sex Assigned at Not on file Legal Sex Male 4:40 AM LIFE SCIENCE RESEARCH ASSISTANT Gender Identity Not on file Sexual Orientation Not on file documented as of this encounter Plan of Treatment Not on file documented as of this encounter Visit Diagnoses Diagnosis Dyspepsia and other specified disorders of function of stomach- Primary Esophageal reflux documented in this encounter Additional Health Concerns Infection Onset Date Last Indicated Resolved Time COVID-19 09/16/2020 09/16/2020 10/16/2020 8:09 PM LIFE SCIENCE RESEARCH ASSISTANT R/O COVID-19 03/30/2021 03/30/2021 03/30/2021 7:26 PM CDT documented as of this encounter Care Teams Learning Analyst Relationship Specialty Start Date End Date Vilma Harry MD PCP - General Internal Medicine 11/04/17 documented as of this encounter
--- OUTSIDE RECORDS SUMMARY | 2025-06-15 11:59 | XMS_ITS | Encounter Summary ---
Author Organization [facility] Address [address] [place] [address] Care Team Providers Care Community Service Officer Name Role Phone Vilma Harry MD Primary Care Provider Unavail able Encounter Details Date Type Department Care Team (Late st Contact Info) Description 08/06/2005 Outpatient Historical [facility] Imaging Services [address] [place] [address] Skyler Medina MD [address] [place] [phone] LUMBOSACRAL SPONDYLOSIS (Primary Dx) Social History Tobacco Use Types Packs/Day Years Used Date Smoking Tobacco: Never Assessed Sex and Gender Information Value Date Recorded Sex Assigned at Not on file Legal Sex Male 4:40 AM WELDER TACK Gender Identity Not on file Sexual Orientation Not on file documented as of this encounter Plan of Treatment Not on file documented as of this encounter Visit Diagnoses Diagnosis Lumbosacral spondylosis without myelopathy- Primary documented in this encounter Additional Health Concerns Infection Onset Date Last Indicated Resolved Time COVID-19 09/16/2020 09/16/2020 10/16/2020 8:09 PM WELDER TACK R/O COVID-19 03/30/2021 03/30/2021 03/30/2021 7:26 PM CDT documented as of this encounter Care Teams Community Service Officer Relationship Specialty Start Date End Date Vilma Harry MD PCP - General Internal Medicine 11/04/17 documented as of this encounter
--- OUTSIDE RECORDS SUMMARY | 2025-06-15 11:59 | XMS_ITS | Encounter Summary ---
Author Organization [facility] Address [address] [place] [address] Care Team Providers Care Watch Band Assembler Name Role Phone Vilma Harry MD Primary Care Provider Unavail able Encounter Details Date Type Department Care Team (Late st Contact Info) Description 07/28/[address] [facility] Imaging Services [address] [place] [address] Skyler Medina MD [address] [place] [phone] Effusion of Lower Leg Joint (Primary Dx) Social History Tobacco Use Types Packs/Day Years Used Date Smoking Tobacco: Never Assessed Sex and Gender Information Value Date Recorded Sex Assigned at Not on file Legal Sex Male 4:40 AM QA ANALYST Gender Identity Not on file Sexual Orientation Not on file documented as of this encounter Plan of Treatment Not on file documented as of this encounter Procedures Procedure Name Priority Date/Time Associated Diagnosis Comments XR KNEE 1 OR 2 VW RIGHT Routine 07/28/2006 3:54 PM CDT documented in this encounter Results * XR KNEE 1 OR 2 VW RIGHT (07/28/2006 3:54 PM CDT) Anatomical Region Laterality Modality Lower Extremity Other 07/28/2006 3:54 PM CDT Narrative 07/28/2006 3:54 PM CDT Right Knee Dated 07/28/2006. History: Right knee pain. It appears that there is at least a mild knee joint effusion. The joint spaces are well maintained. Isee no acute bony abnormality. - Dictated By: Jason Giles M.D. Electronically Signed By: Jason Giles M.D. Date Signed: 07/29/06 AMA Procedure Note 09/15/2009 Right Knee Dated 07/28/2006. History: Right knee pain. It appears that there is at least a mild knee joint effusion. The jointspaces are well maintained. Isee no acute bony abnormality. - Dictated By: Jason Giles M.D. Electronically Signed By: Jason Giles M.D. Date Signed: 07/29/06 AMA Skyler Medina MD DIAGNOSTIC IMAGING ORDERABLES Final Result documented in this encounter Visit Diagnoses Diagnosis Effusion of lower leg joint- Primary documented in this encounter Additional Health Concerns Infection Onset Date Last Indicated Resolved Time COVID-19 09/16/2020 09/16/2020 10/16/2020 8:09 PM QA ANALYST R/O COVID-19 03/30/2021 03/30/2021 03/30/2021 7:26 PM CDT documented as of this encounter Care Teams Watch Band Assembler Relationship Specialty Start Date End Date Vilma Harry MD PCP - General Internal Medicine 11/04/17 documented as of this encounter
--- OUTSIDE RECORDS SUMMARY | 2025-06-15 11:59 | XMS_ITS | Encounter Summary ---
Author Organization [facility] Address [address] [place] [address] Care Team Providers Care Dehorner Name Role Phone Vilma Harry MD Primary Care Provider Unavail able Encounter Details Date Type Department Care Team (Latest Contact Info) Description 07/30/2002 Outpatient Historical [facility] Jose Luis Fajardo MD [address] [place] [address] DYSURIA (Primary Dx); PROSTATITIS NOS Social History Tobacco Use Types Packs/Day Years Used Date Smoking Tobacco: Never Assessed Sex and Gender Information Value Date Recorded Sex Assigned at Not on file Legal Sex Male 4:40 AM DIRECTOR OF CASEWORK DEPARTMENT Gender Identity Not on file Sexual Orientation Not on file documented as of this encounter Plan of Treatment Not on file documented as of this encounter Visit Diagnoses Diagnosis Dysuria- Primary Prostatitis, unspecified documented in this encounter Additional Health Concerns Infection Onset Date Last Indicated Resolved Time COVID-19 09/16/2020 09/16/2020 10/16/2020 8:09 PM DIRECTOR OF CASEWORK DEPARTMENT R/O COVID-19 03/30/2021 03/30/2021 03/30/2021 7:26 PM CDT documented as of this encounter Care Teams Dehorner Relationship Specialty Start Date End Date Vilma Harry MD PCP - General Internal Medicine 11/04/17 documented as of this encounter
--- OUTSIDE RECORDS SUMMARY | 2025-06-15 11:59 | XMS_ITS | Encounter Summary ---
Author Organization [facility] Address [address] [place] [address] Care Team Providers Care Supervisor Electronics Processing Name Role Phone Vilma Harry MD Primary Care Provider Unavail able Encounter Details Date Type Department Care Team (Latest Contact Info) Description 12/25/1999 Outpatient Historical [facility] Jose Luis Fajardo MD [address] [place] [address] Chest pain, unspecified (Primary Dx); Other dyspnea and respiratory abnormality Social History Tobacco Use Types Packs/Day Years Used Date Smoking Tobacco: Never Assessed Sex and Gender Information Value Date Recorded Sex Assigned at Not on file Legal Sex Male 4:40 AM AIRPLANE PILOT SUPERVISOR Gender Identity Not on file Sexual Orientation Not on file documented as of this encounter Plan of Treatment Not on file documented as of this encounter Visit Diagnoses Diagnosis Chest pain, unspecified- Primary Other dyspnea and respiratory abnormality documented in this encounter Additional Health Concerns Infection Onset Date Last Indicated Resolved Time COVID-19 09/16/2020 09/16/2020 10/16/2020 8:09 PM AIRPLANE PILOT SUPERVISOR R/O COVID-19 03/30/2021 03/30/2021 03/30/2021 7:26 PM CDT documented as of this encounter Care Teams Supervisor Electronics Processing Relationship Specialty Start Date End Date Vilma Harry MD PCP - General Internal Medicine 11/04/17 documented as of this encounter
--- OUTSIDE RECORDS SUMMARY | 2025-06-15 11:59 | XMS_ITS | Encounter Summary ---
Author Organization [facility] Address [address] [place] [address] Care Team Providers Care Iron Melter Name Role Phone Vilma Harry MD Primary Care Provider Unavail able Encounter Details Date Type Department Care Team (Late st Contact Info) Description 02/01/2004 Outpatient Historical [facility] End[facility] [place] [address] [place] [address] Jose Russo MD NO ADDRESS ON FILE DIAPHRAGMATIC HERNIA (Primary Dx) Social History Tobacco Use Types Packs/Day Years Used Date Smoking Tobacco: Never Assessed Sex and Gender Information Value Date Recorded Sex Assigned at Not on file Legal Sex Male 4:40 AM SOUND EFFECTS PERSON Gender Identity Not on file Sexual Orientation Not on file documented as of this encounter Plan of Treatment Not on file documented as of this encounter Visit Diagnoses Diagnosis Diaphragmatic hernia without mention of obstruction or gangrene- Primary documented in this encounter Additional Health Concerns Infection Onset Date Last Indicated Resolved Time COVID-19 09/16/2020 09/16/2020 10/16/2020 8:09 PM SOUND EFFECTS PERSON R/O COVID-19 03/30/2021 03/30/2021 03/30/2021 7:26 PM CDT documented as of this encounter Care Teams Iron Melter Relationship Specialty Start Date End Date Vilma Harry MD PCP - General Internal Medicine 11/04/17 documented as of this encounter
--- OUTSIDE RECORDS SUMMARY | 2025-06-15 11:59 | XMS_ITS | Clinical Summary ---
Author Organization [facility] Address [address] [place] [address] Care Team Providers Care Herbarium Worker Name Role Phone Vilma Harry MD Primary Care Provider Unavail able Allergies Active Allergy Reactions Criticality Noted Date Comments Erythromycin Hives High 09/11/2009 Shrimp Shortness of Breath/Wheezing,Swelling High 11/06/2015 Medications omeprazole (PRILOSEC) 40 mg Oral CpDRIndications :GERD (gastroesophage al reflux disease),HH (hiatus hernia) Take 1 Cap by mouth daily. 90 Cap 3 0 Active clotrimazole-be tamethasone (LOTRISONE) 1-0.05 % Lotion Apply to affected areas on legs twice a day. 30 mL 2 0 Active amLODIPine (NORVASC) 10 mg tablet Take 1 tablet by mouth once daily 90 Tablet 0 Active imipramine HCl (TOFRANIL) 50 mg tablet TAKE 1 TABLET BY MOUTH ONCE DAILY AT BEDTIME 90 Tablet 1 0 Active fenofibric acid (TRILIPIX) 45 mg Capsule, Delayed Release(E.C.) Take 1 capsule by mouth once daily 90 Capsule 1 Active atorvastatin (LIPITOR) 40 mg tablet TAKE 1/2 TABLET BY MOUTH LATE IN THE DAY 45 Tablet 1 Active albuterol HFA 90 mcg inhaler Take 2 Puffs by inhalation every 6 hours as needed for Shortness of Breath. 6.7 Gram 3 1 Active naproxen (NAPROSYN) 500 mg tablet TAKE 1 TABLET BY MOUTH TWICE DAILY WITH MEALS 60 Tablet 1 Active HYDROCHLOROTHIA ZIDE 25 mg tablet Take 1 tablet by mouth once daily with breakfast 90 Tablet 1 Active esomeprazole (NexIUM) 20 mg Capsule, Delayed Release(E.C.) Take 20 mg by mouth daily before breakfast. Active azelastine (ASTELIN) 137 mcg/actuation nasal spray Administer 2 Sprays in each nostril daily. 30 mL 1 Active Active Problems Problem Noted Date Diagnosed Date Reactive airway disease 01/28/2019 Patellar tendonitis of left knee, MRI 02/11 Hypertriglyceridemia 11/19/2016 Essential hypertension 06/03/2016 Esophageal spasm 05/02/2016 Family history of colon cancer, recheck colon du e 03/202306/08/2015 Allergic rhinitis due to allergen 03/24/2015 Dupuytren's contracture of right hand 11/22/2013 Ulnar neuropathy at elbow, left 04/26/2013 Ulnar neuropathy at elbow-ri ght, S/P decompression on 02/11/13 02/24/2013 Ulnar neuropathy at elbow-right 02/01/2013 Lateral epicondylitis of elbow 12/31/2012 Trigger ring finger of right hand 06/30/2012 Carpal tunnel syndrome 06/30/2012 Back pain 11/26/2011 Cervical neck pain with evidence of disc disease 10/26/2011 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 Rec that pt [...] Date Smoking Tobacco: Never Smokeless Tobacco: Never Tobacco Cessation:Counseling Given: No Alcohol Use Standard Drinks/Week Comments No 0 (1 standard drink = 0.6 oz pur e alcohol) Sex and Gender Information Value Date Recorded Sex Assigned at Not on file Legal Sex Male 4:40 AM COMPONENT ENGINEER Gender Identity Not on file Sexual Orientation Not on file Occupation Industry Job Start Date Job End Date Not on file Not on file Not on file Not on file Last Filed Vital Signs Vital Sign Reading Time Taken Comments Blood Pressure 142/80 04/23/2021 11:07 AM CDT Pulse 92 04/23/2021 11:07 AM CDT Temperature 36.9 C (98.5 F) 03/30/2021 9:07 AM CDT Respiratory Rate 16 10/17/2020 11:15 AM COMPONENT ENGINEER Oxygen Saturation 98% 10/17/2020 11:15 AM COMPONENT ENGINEER Inhaled Oxygen Concentration - - Weight 100.2 kg (221 lb) 04/23/2021 11:07 AM CDT Height 182.9 cm (6') 04/23/2021 11:07 AM CDT Body Mass Index 29.97 04/23/2021 11:07 AM CDT Plan of Treatment Health Maintenance Due Date [...] 08/20/2022 08/20/2012 COLORECTAL SCREENING 03/27/2023 03/27/2018, 03/27/2018, 06/12/2015, Additional history exists Colorectal Cancer Screening 03/27/2023 INFLUENZA VACCINE (#1) 2025 08/04/2020, 2018 Procedures Procedure Name Priority Date/Time Associated Diagnosis Comments COLONOSCOPY REPORT 03/27/2018 11 :45 AM CDT POC OCCULT BLOOD UP TO 3 CARDS Routine 08/14/2015 9:00 AM CDT Colon cancer screening from Last 3 Months or Most Recently Relevant to Health Maintenance Results * COLONOSCOPY REPORT (03/27/2018 11:45 AM CDT) Narrative Procedure Note Keith Penaloza MD - 03/27/2018 11:44 AM CDT [facility] Patient Name: William Hudson Procedure Date: [...] 11:27:37 AM Scope Out: 11:39:40 AM [address] Keith Penaloza MD GI PROCEDURE ORDERABLES Final R esult * POC OCCULT BLOOD UP TO 3 CARDS (08/14/2015 9:00 AM CDT) OCCULT BLOOD #1 Negative Negative OCCULT BLOOD #2 Negative Negative OCCULT BLOOD #3 Negative Negative Stool specimen (specimen) 08/14/2015 9:00 AM CDT Vilma Harry MD POINT OF CARE TESTING Edited R esult - Final from Last 3 Months or Most Recently Relevant to Health Maintenance Insurance [facility] [employer] Member Subscriber Plan / Payer (Ef fective 2020-Present) Name:William Hudson Relation to Subscriber:Employee Name:[id number] MUELLER (Work) Address: [address] [place] [address] Payer ID:Not on file Type:Workers Compensation Address: [facility] [address] [id number] Advance Directives For more information, please contact: [phone] * Full Code (Latest Code Status on File) Date Activated Date Inactivated Comments 03/27/2018 10:25 AM 03/27/2018 2:05 PM * Full Code Date Activated Date Inactivated Comments 05/13/2013 8:02 AM 05/14/2013 2:01 AM * Full Code Date Activated Date Inactivated Comments 05/13/2013 8:01 AM 05/13/2013 8:02 AM * Full Code Date Activated Date Inactivated Comments 02/11/2013 7:47 AM 02/12/2013 2:01 AM * Full Code Date Activated Date Inactivated Comments 02/11/2013 7:16 AM 02/11/2013 7:47 AM Care Teams Herbarium Worker Relationship Specialty Start Date End Date Vilma Harry MD PCP - General Internal Medicine 11/04/17
--- OUTSIDE RECORDS SUMMARY | 2025-06-15 11:59 | XMS_ITS | Encounter Summary ---
Author Organization [facility] Address [address] [place] [address] Care Team Providers Care Animal Nursery Worker Name Role Phone Vilma Harry MD Primary Care Provider Unavail able Encounter Details Date Type Department Care Team (Latest Contact Info) Description 07/30/1999 Outpatient Historical [facility] Jose Luis Fajardo MD [address] [place] [address] Pathologic fracture of humerus (Primary Dx); Sprain of neck; CA in situ skin trunk Social History Tobacco Use Types Packs/Day Years Used Date Smoking Tobacco: Never Assessed Sex and Gender Information Value Date Recorded Sex Assigned at Not on file Legal Sex Male 4:40 AM DONOR SERVICES TEAM LEADER Gender Identity Not on file Sexual Orientation Not on file documented as of this encounter Plan of Treatment Not on file documented as of this encounter Visit Diagnoses Diagnosis Pathologic fracture of humerus- Primary Sprain of neck Neck sprain and strain 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
--- OUTSIDE RECORDS SUMMARY | 2025-06-15 11:59 | XMS_ITS | Encounter Summary ---
Author Organization [facility] Address [address] [place] [address] Care Team Providers Care Dusting And Brushing Machine Operator Name Role Phone Vilma Harry MD Primary Care Provider Unavail able Encounter Details Date Type Department Care Team (Latest Contact Info) Description 10/05/1999 Outpatient Historical HIS [facility] Jose Luis Fajardo MD [address] [place] [address] Contact dermatitis and other eczema, due to unspecified cause (Primary Dx); Neoplasm of unspecified nature of bone, soft tissue, and skin; Nonallopathic lesion of abdomen and other sites, not elsewhere classified; Nonallopathic lesion of cervical region, not elsewhere classified Social History Tobacco Use Types Packs/Day Years Used Date Smoking Tobacco: Never Assessed Sex and Gender Information Value Date Recorded Sex Assigned at Not on file Legal Sex Male 4:40 AM INDUSTRIAL STAFF NURSE Gender Identity Not on file Sexual Orientation Not on file documented as of this encounter Plan of Treatment Not on file documented as of this encounter Visit Diagnoses Diagnosis Contact dermatitis and other eczema, due to unspecified cause- Primary Neoplasm of unspecified nature of bone, soft tissue, and skin Nonallopathic lesion of abdomen and other sites, not elsewhere classified Nonallopathic lesion of cervical region, not elsewhere classified documented in this encounter Additional Health Concerns Infection Onset Date Last Indicated Resolved Time COVID-19 09/16/2020 09/16/2020 10/16/2020 8:09 PM INDUSTRIAL STAFF NURSE R/O COVID-19 03/30/2021 03/30/2021 03/30/2021 7:26 PM CDT documented as of this encounter Care Teams Dusting And Brushing Machine Operator Relationship Specialty Start Date End Date Vilma Harry MD PCP - General Internal Medicine 11/04/17 documented as of this encounter
--- OUTSIDE RECORDS SUMMARY | 2025-06-15 11:59 | XMS_ITS | Encounter Summary ---
Author Organization [facility] Address [address] [place] [address] Care Team Providers Care Furnace Operator And Tender Name Role Phone Vilma Harry MD Primary Care Provider Unavail able Encounter Details Date Type Department Care Team (Latest Contact Info) Description 12/19/1999 Outpatient Historical HIS [facility] Jason Lepe MD [address] [facility] [address] [place] [address] Follow-up examination following surgery (Primary Dx) Social History Tobacco Use Types Packs/Day Years Used Date Smoking Tobacco: Never Assessed Sex and Gender Information Value Date Recorded Sex Assigned at Not on file Legal Sex Male 4:40 AM NET TECHNICAL ARCHITECT Gender Identity Not on file Sexual Orientation Not on file documented as of this encounter Plan of Treatment Not on file documented as of this encounter Visit Diagnoses Diagnosis Follow-up examination following surgery- Primary documented in this encounter Additional Health Concerns Infection Onset Date Last Indicated Resolved Time COVID-19 09/16/2020 09/16/2020 10/16/2020 8:09 PM NET TECHNICAL ARCHITECT R/O COVID-19 03/30/2021 03/30/2021 03/30/2021 7:26 PM CDT documented as of this encounter Care Teams Furnace Operator And Tender Relationship Specialty Start Date End Date Vilma Harry MD PCP - General Internal Medicine 11/04/17 documented as of this encounter
--- OUTSIDE RECORDS SUMMARY | 2025-06-15 11:59 | XMS_ITS | Encounter Summary ---
Author Organization [facility] Address [address] [place]: [place] [address] Care Team Providers Care Stock Order Lister Name Role Phone Vilma Harry MD Primary Care Provider Unavail able Encounter Details Date Type Department Care Team (Late st Contact Info) Description 12/10/1999 Outpatient Historical Jason Lepe MD [address] [facility] [address] [place] [address] Social History Tobacco Use Types Packs/Day Years Used Date Smoking Tobacco: Never Assessed Sex and Gender Information Value Date Recorded Sex Assigned at Not on file Legal Sex Male 4:40 AM DIAMOND CLEAVER Gender Identity Not on file Sexual Orientation Not on file documented as of this encounter Plan of Treatment Not on file documented as of this encounter Visit Diagnoses Not on filedocumented in this encounter Additional Health Concerns Infection Onset Date Last Indicated Resolved Time COVID-19 09/16/2020 09/16/2020 10/16/2020 8:09 PM DIAMOND CLEAVER R/O COVID-19 03/30/2021 03/30/2021 03/30/2021 7:26 PM CDT documented as of this encounter Care Teams Stock Order Lister Relationship Specialty Start Date End Date Vilma Harry MD PCP - General Internal Medicine 11/04/17 documented as of this encounter
--- OUTSIDE RECORDS SUMMARY | 2025-06-15 11:59 | XMS_ITS | Encounter Summary ---
Author Organization [facility] Address [address] [place] [address] Care Team Providers Care Outside Sales Representative Insurance Name Role Phone Vilma Harry MD Primary Care Provider Unavail able Encounter Details Date Type Department Care Team (Late st Contact Info) Description 05/13/2018 Lab Requisition [facility] [address] [place] [address] Hector Gibson, [address] [address] Social History Tobacco Use Types Packs/Day Years Used Date Smoking Tobacco: Never Smokeless Tobacco: Never Alcohol Use Standard Drinks/Week Comments No 0 (1 standard drink = 0.6 oz pur e alcohol) Sex and Gender Information Value Date Recorded Sex Assigned at Not on file Legal Sex Male 4:40 AM INSURANCE PLAN SPECIALIST Gender Identity Not on file Sexual Orientation Not on file Occupation Industry Job Start Date Job End Date Not on file Not on file Not on file Not on file documented as of this encounter Plan of Treatment Not on file documented as of this encounter Procedures Procedure Name Priority Date/Time Associated Diagnosis Comments EXTRA TUBE (SST/GOLD) Routine 05/13/2018 5:57 AM CDT CBC WITH DIFFERENTIAL Routine 05/13/2018 5:57 AM CDT URIC ACID Routine 05/13/2018 5:57 AM CDT TSH Routine 05/13/2018 5:57 AM CDT IRON LEVEL Routine 05/13/2018 5:57 AM CDT LIPID PANEL Routine 05/13/2018 5:57 AM CDT COMPREHENSIVE METABOLIC PANEL Routine 05/13/2018 5:57 AM CDT documented in this encounter Results * EXTRA TUBE (SST/GOLD) (05/13/2018 5:57 AM CDT) Blood Collection / Unknown 05/13/2018 5:57 AM CDT 05/13/2018 12:21 PM CDT us Hector Gibson DO CHEMISTRY ORDERABLES Final R esult Performing Organization Address [facility] Co de Phone Number [facility] CLIA# [id number] [address] [place] [address] * URIC ACID (05/13/2018 5:57 AM CDT) URIC ACID 6.8 3.4 - 7.0 mg/dL 05/13/2018 5:49 PM CDT [facility] Blood Collection / Unknown 05/13/2018 5:57 AM CDT 05/13/2018 12:21 PM CDT us Hector Gibson DO CHEMISTRY ORDERABLES Final R esult Performing Organization Address City/[facility]/ZIP Co de Phone Number [facility] CLIA# [id number] [address] [place] [address] * (ABNORMAL) IRON LEVEL (05/13/2018 5:57 AM CDT) IRON 161(H) 59 - 158 ug/dL 05/13/2018 5:49 PM CDT [facility] Blood Collection / Unknown 05/13/2018 5:57 AM CDT 05/13/2018 12:21 PM CDT us Hector Gibson DO CHEMISTRY ORDERABLES Final R esult [facility] CLIA# [id number] [address] [place] [address] * (ABNORMAL) CBC WITH DIFFERENTIAL (05/13/2018 5:57 AM CDT) [facility] WBC 6.3 4.8 - 10.8 K/uL 05/13/2018 4:00 PM CDT [facility] RBC 4.99 4.60 - 6.20 M/uL 05/13/2018 4:00 PM CDT [facility] HEMOGLOBIN 15.1 14.0 - 18.0 g/dL 05/13/2018 4:00 PM CDT [facility] HEMATOCRIT 44.8 41.0 - 53.0 % 05/13/2018 4:00 PM CDT [facility] MCV 89.8 84.0 - 103.0 fL 05/13/2018 4:00 PM CDT [facility] MCH 30.3 27.0 - 34.0 pg 05/13/2018 4:00 PM CDT [facility] MCHC 33.7 30.0 - 35.0 g/dL 05/13/2018 4:00 PM CDT [facility] RDW 12.3 11.0 - 14.5 % 05/13/2018 4:00 PM CDT [facility] RDW-STDEV 39.8 37.0 - 54.0 fL 05/13/2018 4:00 PM CDT [facility] PLATELETS 266 140 - 440 K/uL 05/13/2018 4:00 PM CDT [facility] MPV 10.0 8.9 - 12.8 fL 05/13/2018 4:00 PM CDT [facility] NEUTROPHILS 43 42 - 75 % 05/13/2018 4:00 PM CDT [facility] LYMPHOCYTES 37 24 - 44 % 05/13/2018 4:00 PM CDT [facility] MONOCYTES 14(H) 2 - 10 % 05/13/2018 4:00 PM CDT [facility] EOSINOPHILS 5 0 - 7 % 05/13/2018 4:00 PM CDT [facility] BASOPHILS 1 0 - 1 % 05/13/2018 4:00 PM CDT [facility] IMMATURE GRANULOCYTES 1 0 - 2 % 05/13/2018 4:00 PM CDT [facility] NEUTROPHIL ABSOLUTE 2.69 2.00 - 8.00 K/uL 05/13/2018 4:00 PM CDT [facility] LYMPHOCYTE ABSOLUTE 2.36 1.20 - 4.00 K/uL 05/13/2018 4:00 PM CDT [facility] MONOCYTE ABSOLUTE 0.87(H) 0.10 - 0.60 K/uL 05/13/2018 4:00 PM CDT [facility] EOSINOPHIL ABSOLUTE 0.32 0.00 - 0.70 K/uL 05/13/2018 4:00 PM CDT [facility] BASOPHILS ABSOLUTE 0.04 0.00 - 0.20 K/uL 05/13/2018 4:00 PM CDT [facility] IMMATURE GRANULOCYTES ABSOLUTE 0.04 0.00 - 0.10 K/uL 05/13/2018 4:00 PM CDT [facility] Blood Collection / Unknown 05/13/2018 5:57 AM CDT 05/13/2018 12:21 PM CDT us Hector Gibson DO HEMATOLOGY ORDERABLES Final Result [facility] CLIA# [id number] [address] [place] [address] * TSH (05/13/2018 5:57 AM CDT) TSH 3.36 0.27 - 4.20 uIU/mL 05/13/2018 6:28 PM CDT [facility] Blood Collection / Unknown 05/13/2018 5:57 AM CDT 05/13/2018 12:21 PM CDT us Hector Gibson DO CHEMISTRY ORDERABLES Final R esult [facility] CLIA# [id number] [address] [place] [address] * (ABNORMAL) LIPID PANEL (05/13/2018 5:57 AM CDT) [facility] CHOLESTEROL 175 <200 mg/dL 05/13/2018 5:49 PM CDT [facility] TRIGLYCERIDE 172(H) <150 mg/dL 05/13/2018 5:49 PM CDT [facility] HDL 44 40 - 59 mg/dL 05/13/2018 5:49 PM CDT [facility] LDL CALCULATED 97 <100 mg/dL 05/13/2018 5:49 PM CDT [facility] NON-HDL CHOLESTEROL 131(H) <130 mg/dL 05/13/2018 5:49 PM T [facility] Blood Collection / Unknown 05/13/2018 5:57 AM CDT 05/13/2018 12:21 PM CDT Narrative [facility] - 05/13/2018 5:49 PM CDT TOTAL CHOLESTEROL mg/dL Desirable [...] Guidelines Reference Ranges for Lipid Panels (NCEP/AMA) us Hector Gibson DO CHEMISTRY ORDERABLES Final R esult [facility] Daily [facility] CLIA# [id number] [address] [place] [address] * (ABNORMAL) COMPREHENSIVE METABOLIC PANEL (05/13/2018 5:57 AM CDT) [facility] SODIUM 145 136 - 145 mmol/L 05/13/2018 5:49 PM [facility] POTASSIUM 4.1 3.5 - 5.1 mmol/L 05/13/2018 5:49 PM [facility] CHLORIDE 100 98 - 107 mmol/L 05/13/2018 5:49 PM [facility] CO2 25 22 - 29 mmol/L 05/13/2018 5:49 PM [facility] CALCIUM 9.2 8.8 - 10.2 mg/dL 05/13/2018 5:49 PM [facility] BUN 23 8 - 23 mg/dL 05/13/2018 5:49 PM [facility] CREATININE 1.22(H) 0.67 - 1.17 mg/dL 05/13/2018 5:49 PM [facility] GLUCOSE 99 74 - 99 mg/dL 05/13/2018 5:49 PM [facility] TOTAL PROTEIN 7.1 6.4 - 8.3 g/dL 05/13/2018 5:49 PM [facility] ALBUMIN 4.5 3.5 - 5.2 g/dL 05/13/2018 5:49 PM [facility] BILIRUBIN TOTAL 0.8 0.2 - 1.0 mg/dL 05/13/2018 5:49 PM [facility] ALKALINE PHOSPHATASE 83 40 - 129 U/L 05/13/2018 5:49 PM [facility] AST 28 10 - 50 U/L 05/13/2018 5:49 PM [facility] ALT 38 <=50 U/L 05/13/2018 5:49 PM [facility] GFR >60 >=60 mL/min/1. 73 sq meter 05/13/2018 5:49 PM [facility] Comment: eGFR has not been validated for [...] GFR, >60 >=60 mL/min/1. 73 sq meter 05/13/2018 5:49 PM CDT [facility] ANION GAP 20 9 - 20 mmol/L 05/13/2018 5:49 PM CDT [facility] Blood Collection / Unknown 05/13/2018 5:57 AM CDT 05/13/2018 12:21 PM CDT us Hector Gibson DO CHEMISTRY ORDERABLES Final R esult [facility] CLIA# [id number] [address] [place] [address] documented in this encounter Visit Diagnoses Not on filedocumented in this encounter Additional Health Concerns Infection Onset Date Last Indicated Resolved Time COVID-19 09/16/2020 09/16/2020 10/16/2020 8:09 PM INSURANCE PLAN SPECIALIST R/O COVID-19 03/30/2021 03/30/2021 03/30/2021 7:26 PM CDT documented as of this encounter Care Teams Outside Sales Representative Insurance Relationship Specialty Start Date End Date Vilma Harry MD PCP - General Internal Medicine 11/04/17 documented as of this encounter
--- OUTSIDE RECORDS SUMMARY | 2025-06-15 11:59 | XMS_ITS | Encounter Summary ---
Author Organization [facility] Address [address] [place] [address] Care Team Providers Care Public Works Manager Name Role Phone Vilma Harry MD Primary Care Provider Unavail able Encounter Details Date Type Department Care Team (Latest Contact Info) Description 09/03/2002 Outpatient Historical [facility] Jose Luis Fajardo MD [address] [place] [address] ABDOMINAL PAIN RLQ (Primary Dx); ORCHITIS/EPIDIDYMIT NOS Social History Tobacco Use Types Packs/Day Years Used Date Smoking Tobacco: Never Assessed Sex and Gender Information Value Date Recorded Sex Assigned at Not on file Legal Sex Male 4:40 AM PARTS SALES ASSOCIATE Gender Identity Not on file Sexual Orientation Not on file documented as of this encounter Plan of Treatment Not on file documented as of this encounter Visit Diagnoses Diagnosis Abdominal pain, right lower quadrant- Primary Orchitis and epididymitis, unspecified documented in this encounter Additional Health Concerns Infection Onset Date Last Indicated Resolved Time COVID-19 09/16/2020 09/16/2020 10/16/2020 8:09 PM PARTS SALES ASSOCIATE R/O COVID-19 03/30/2021 03/30/2021 03/30/2021 7:26 PM CDT documented as of this encounter Care Teams Public Works Manager Relationship Specialty Start Date End Date Vilma Harry MD PCP - General Internal Medicine 11/04/17 documented as of this encounter
--- OUTSIDE RECORDS SUMMARY | 2025-06-15 11:59 | XMS_ITS | Encounter Summary ---
Author Organization [facility] Address [address] [place] [address] Care Team Providers Care Well Logging Mud Analysis Captain Name Role Phone Vilma Harry MD Primary Care Provider Unavail able Encounter Details Date Type Department Care Team (Late st Contact Info) Description 08/01/2006 Outpatient Historical [facility] Imaging Services [address] [place] [address] Skyler Medina MD [address] [place] [phone] Chondromalacia of Patella (Primary Dx) Social History Tobacco Use Types Packs/Day Years Used Date Smoking Tobacco: Never Assessed Sex and Gender Information Value Date Recorded Sex Assigned at Not on file Legal Sex Male 4:40 AM MANAGER POOL Gender Identity Not on file Sexual Orientation Not on file documented as of this encounter Plan of Treatment Not on file documented as of this encounter Procedures Procedure Name Priority Date/Time Associated Diagnosis Comments MRI KNEE WO CONTRAST RIGHT Routine 08/01/2006 12:01 AM CDT documented in this encounter Results * MRI KNEE WO CONTRAST RIGHT (08/01/2006 12:01 AM CDT) Anatomical Region Laterality Modality Lower Extremity Other 08/01/2006 12:0 1 AM CDT Narrative 08/01/2006 12:01 AM CDT MRI of the right knee was performed without contrast. The patient has right knee pain. The ACL is intact and thickened with increased signal in its substance. Multiloculated cyst protrudefrom the ACL especially near the femoral attachment site consistent with mucinous degenerativechanges. The PCL is intact. The quadriceps tendon and the patellar tendon are intact. Medialcollateral ligament, iliotibial tract, fibulocollateral ligament and the biceps femoris are intact. There is mild diffuse cartilage loss throughout the knee. Cartilage loss of the patella isespecially prominent with extensive fissuring and fraying and fluid-filled defects in the articularsurfaces of the patella. A small amount subchondral edema and early cyst formation is identified. Less prominent cartilage loss of the adjacent trochlea is identified. There is a small knee jointeffusion. The axial images best demonstrate small subchondral cyst formation and edema at theattachment site of the ACL and PCL to the femur. No lateral meniscal tear is identified. The patient does have a medial meniscal tear. The tear is bestappreciated on sagittal T2 image 16 series 8 or fluid extends into the tear the inner margin of themeniscus. The meniscal tear appear small on the MRI but the medial meniscus has a wavy andirregular appearance. Specifically, it is suspicious that the patient may having more extensivetear partially obscured by granulation tissue or scarring. Impression: 1. 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 There is less prominent cartilage loss in the remainder the kneejoint. 2. Mucinous degeneration the ACL with the enlarged appearance, internal edema and multiloculated tinyganglion cyst protruding from the posterior ACL. 3. Small fluid-filled tear inner margin posterior horn medial meniscus. More extensive underlyingmedial meniscal pathology may be present given the abnormal contour of the meniscus and increasedsignal centrally. - Dictated By: Serenity Rowe M.D. Electronically Signed By: Serenity Rowe M.D. Date Signed: 08/01/06 Procedure Note 09/15/2009 MRI of the right knee was performed without contrast. The patient hasright knee pain. The ACL is intact and thickened with increased signal in its substance.Multiloculated cyst protrudefrom the ACL especially near the femoral attachment site consistent withmucinous degenerativechanges. The PCL is intact. The quadriceps tendon and the patellar tendon are intact.Medialcollateral ligament, iliotibial tract, fibulocollateral ligament and the biceps femoris areintact. There is mild diffuse cartilage loss throughout the knee. Cartilage lossof the patella isespecially prominent with extensive fissuring and fraying and fluid-filled defects inthe articularsurfaces of the patella. A small amount subchondral edema and early cyst formation isidentified. Less prominent cartilage loss of the adjacent trochlea is identified.There is a small knee jointeffusion. The axial images best demonstrate small subchondral cystformation and edema at theattachment site of the ACL and PCL to the femur. No lateral meniscal tear is identified. The patient does have a medialmeniscal tear. The tear is bestappreciated on sagittal T2 image 16 series 8 or fluid extends into thetear the inner margin of themeniscus. The meniscal tear appear small on the MRI but the medialmeniscus has a wavy andirregular appearance. Specifically, it is suspicious that the patient may havingmore extensivetear partially obscured by granulation tissue or scarring. Impression: 1. Diffuse chondromalacia most severely affecting the patella withextensive cartilage fissuring ,fraying and edema of the patella. There is less prominent cartilage loss in theremainder the kneejoint. 2. Mucinous degeneration the ACL with the enlarged appearance, internaledema and multiloculated tinyganglion cyst protruding from the posterior ACL. 3. Small fluid-filled tear inner margin posterior horn medial meniscus.More extensive underlyingmedial meniscal pathology may be present given the abnormal contour of themeniscus and increasedsignal centrally. - Dictated By: Serenity Rowe M.D. Electronically Signed By: Serenity Rowe M.D. Date Signed: 08/01/06 Skyler Medina MD MR ORDERABLES Final Result documented in this encounter Visit Diagnoses Diagnosis Chondromalacia of patella- Primary documented in this encounter Additional Health Concerns Infection Onset Date Last Indicated Resolved Time COVID-19 09/16/2020 09/16/2020 10/16/2020 8:09 PM MANAGER POOL R/O COVID-19 03/30/2021 03/30/2021 03/30/2021 7:26 PM CDT documented as of this encounter Care Teams Well Logging Mud Analysis Captain Relationship Specialty Start Date End Date Vilma Harry MD PCP - General Internal Medicine 11/04/17 documented as of this encounter
--- OUTSIDE RECORDS SUMMARY | 2025-06-15 11:59 | XMS_ITS | Encounter Summary ---
Author Organization [facility] Address [address] [place] [address] Care Team Providers Care Media Professional Name Role Phone Vilma Harry MD Primary Care Provider Unavail able Encounter Details Date Type Department Care Team (Late st Contact Info) Description 03/07/2004 Outpatient Historical [facility] Endoscopy [place] [address] [place] [address] Jose Russo MD NO ADDRESS ON FILE ESOPHAGEAL REFLUX (Primary Dx) Social History Tobacco Use Types Packs/Day Years Used Date Smoking Tobacco: Never Assessed Sex and Gender Information Value Date Recorded Sex Assigned at Not on file Legal Sex Male 4:40 AM CRYPTOLOGIC SUPPORT SPECIALIST Gender Identity Not on file Sexual Orientation Not on file documented as of this encounter Plan of Treatment Not on file documented as of this encounter Visit Diagnoses Diagnosis Esophageal reflux- Primary documented in this encounter Additional Health Concerns Infection Onset Date Last Indicated Resolved Time COVID-19 09/16/2020 09/16/2020 10/16/2020 8:09 PM CRYPTOLOGIC SUPPORT SPECIALIST R/O COVID-19 03/30/2021 03/30/2021 03/30/2021 7:26 PM CDT documented as of this encounter Care Teams Media Professional Relationship Specialty Start Date End Date Vilma Harry MD PCP - General Internal Medicine 11/04/17 documented as of this encounter
--- OUTSIDE RECORDS SUMMARY | 2025-06-15 11:59 | XMS_ITS | Encounter Summary ---
Author Organization [facility] Address [address] [place] [address] Care Team Providers Care Senior Pharmacy Technician Name Role Phone Vilma Harry MD Primary Care Provider Unavail able Encounter Details Date Type Department Care Team (Latest Contact Info) Description 05/08/2000 Outpatient Historical [facility] Jose Luis Fajardo MD [address] [place] [address] Other chronic otitis externa (Primary Dx) Social History Tobacco Use Types Packs/Day Years Used Date Smoking Tobacco: Never Assessed Sex and Gender Information Value Date Recorded Sex Assigned at Not on file Legal Sex Male 4:40 AM SUPERVISOR CONCRETE STONE FABRICATING Gender Identity Not on file Sexual Orientation Not on file documented as of this encounter Plan of Treatment Not on file documented as of this encounter Visit Diagnoses Diagnosis Other chronic otitis externa- Primary documented in this encounter Additional Health Concerns Infection Onset Date Last Indicated Resolved Time COVID-19 09/16/2020 09/16/2020 10/16/2020 8:09 PM SUPERVISOR CONCRETE STONE FABRICATING R/O COVID-19 03/30/2021 03/30/2021 03/30/2021 7:26 PM CDT documented as of this encounter Care Teams Senior Pharmacy Technician Relationship Specialty Start Date End Date Vilma Harry MD PCP - General Internal Medicine 11/04/17 documented as of this encounter
--- OUTSIDE RECORDS SUMMARY | 2025-06-15 11:59 | XMS_ITS | Encounter Summary ---
Author Organization [facility] Address [address] [place] [address] Care Team Providers Care Deputy Probation Officer Name Role Phone Vilma Harry MD Primary Care Provider Unavail able Encounter Details Date Type Department Care Team (Late st Contact Info) Description 07/09/2005 Outpatient Historical [facility]- [place] [id number] [facility] [place] [facility] [address] [place] [address] Jose Russo MD NO ADDRESS ON FILE ABN FIND-STOOL CONTENTS-OCC BLOOD (Primary Dx); FAMILY HX GI MALIGNANCY Social History Tobacco Use Types Packs/Day Years Used Date Smoking Tobacco: Never Assessed Sex and Gender Information Value Date Recorded Sex Assigned at Not on file Legal Sex Male 4:40 AM RECORD PRODUCER Gender Identity Not on file Sexual Orientation Not on file documented as of this encounter Plan of Treatment Not on file documented as of this encounter Visit Diagnoses Diagnosis Nonspecific abnormal finding in stool contents- Primary Family history of malignant neoplasm of gastrointestinal tract documented in this encounter Additional Health Concerns Infection Onset Date Last Indicated Resolved Time COVID-19 09/16/2020 09/16/2020 10/16/2020 8:09 PM RECORD PRODUCER R/O COVID-19 03/30/2021 03/30/2021 03/30/2021 7:26 PM CDT documented as of this encounter Care Teams Deputy Probation Officer Relationship Specialty Start Date End Date Vilma Harry MD PCP - General Internal Medicine 11/04/17 documented as of this encounter
--- OUTSIDE RECORDS SUMMARY | 2025-06-15 11:59 | XMS_ITS | Encounter Summary ---
Author Organization [facility] Address [address] [place] [address] Care Team Providers Care Lead Injection Mold Technician Name Role Phone Vilma Harry MD Primary Care Provider Unavail able Encounter Details Date Type Department Care Team (Late st Contact Info) Description 12/02/2005 Outpatient Historical [facility] Imaging Services [address] [place] [address] Skyler Medina MD [address] [place] [phone] BRONCHITIS NOS (Primary Dx) Social History Tobacco Use Types Packs/Day Years Used Date Smoking Tobacco: Never Assessed Sex and Gender Information Value Date Recorded Sex Assigned at Not on file Legal Sex Male 4:40 AM SHOE LACER Gender Identity Not on file Sexual Orientation Not on file documented as of this encounter Plan of Treatment Not on file documented as of this encounter Visit Diagnoses Diagnosis Bronchitis, not specified as acute or chronic- Primary documented in this encounter Additional Health Concerns Infection Onset Date Last Indicated Resolved Time COVID-19 09/16/2020 09/16/2020 10/16/2020 8:09 PM SHOE LACER R/O COVID-19 03/30/2021 03/30/2021 03/30/2021 7:26 PM CDT documented as of this encounter Care Teams Lead Injection Mold Technician Relationship Specialty Start Date End Date Vilma Harry MD PCP - General Internal Medicine 11/04/17 documented as of this encounter
--- OUTSIDE RECORDS SUMMARY | 2025-06-15 11:59 | XMS_ITS | Encounter Summary ---
Author Organization [facility] Address [address] [place] [address] Care Team Providers Care Train Clerk Name Role Phone Vilma Harry MD Primary Care Provider Unavail able Encounter Details Date Type Department Care Team (Latest Contact Info) Description 06/18/2002 Outpatient Historical [facility] Jose Luis Fajardo MD [address] [place] [address] ORCHITIS/EPIDIDYMIT NOS (Primary Dx); ABDOMINAL PAIN RLQ Social History Tobacco Use Types Packs/Day Years Used Date Smoking Tobacco: Never Assessed Sex and Gender Information Value Date Recorded Sex Assigned at Not on file Legal Sex Male 4:40 AM DIAGRAMMER AND SEAMER Gender Identity Not on file Sexual Orientation Not on file documented as of this encounter Plan of Treatment Not on file documented as of this encounter Visit Diagnoses Diagnosis Orchitis and epididymitis, unspecified- Primary Abdominal pain, right lower quadrant documented in this encounter Additional Health Concerns Infection Onset Date Last Indicated Resolved Time COVID-19 09/16/2020 09/16/2020 10/16/2020 8:09 PM DIAGRAMMER AND SEAMER R/O COVID-19 03/30/2021 03/30/2021 03/30/2021 7:26 PM CDT documented as of this encounter Care Teams Train Clerk Relationship Specialty Start Date End Date Vilma Harry MD PCP - General Internal Medicine 11/04/17 documented as of this encounter
--- OUTSIDE RECORDS SUMMARY | 2025-06-15 11:59 | XMS_ITS | Encounter Summary ---
Author Organization [facility] Address [address] [place] [address] Care Team Providers Care Ultrasonic Welding Machine Operator Name Role Phone Vilma Harry MD Primary Care Provider Unavail able Encounter Details Date Type Department Care Team (Latest Contact Info) Description 01/26/2004 Outpatient [facility] Care [facility] [address] [place] [address] Aaron Almanzar PA [address] [place], [place] [address] COUGH (Primary Dx) Social History Tobacco Use Types Packs/Day Years Used Date Smoking Tobacco: Never Assessed Sex and Gender Information Value Date Recorded Sex Assigned at Not on file Legal Sex Male 4:40 AM 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 OF HOUSE 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 Gender Identity Not on file Sexual Orientation Not on file documented as of this encounter Plan of Treatment Not on file documented as of this encounter Visit Diagnoses Diagnosis Cough- Primary documented in this encounter Additional Health Concerns Infection Onset Date Last Indicated Resolved Time COVID-19 09/16/2020 09/16/2020 10/16/2020 8:09 PM FRONT OF HOUSE MANAGER R/O COVID-19 03/30/2021 03/30/2021 03/30/2021 7:26 PM CDT documented as of this encounter Care Teams Ultrasonic Welding Machine Operator Relationship Specialty Start Date End Date Vilma Harry MD PCP - General Internal Medicine 11/04/17 documented as of this encounter
--- OUTSIDE RECORDS SUMMARY | 2025-06-15 11:59 | XMS_ITS | Encounter Summary ---
Author Organization [facility] Address [address] [place] [address] Care Team Providers Care Car Tracer Name Role Phone Vilma Harry MD Primary Care Provider Unavail able Encounter Details Date Type Department Care Team (Late st Contact Info) Description 05/14/2017 Lab Requisition [facility] Laboratory Services [address] [address] [place] [address] Skyler Reyes MD NO ADDRESS ON FILE Social History Tobacco Use Types Packs/Day Years Used Date Smoking Tobacco: Never Smokeless Tobacco: Never Alcohol Use Standard Drinks/Week Comments No 0 (1 standard drink = 0.6 oz pur e alcohol) Sex and Gender Information Value Date Recorded Sex Assigned at Not on file Legal Sex Male 4:40 AM RECREATIONAL FACILITIES MOTEL MANAGER Gender Identity Not on file Sexual Orientation Not on file Occupation Industry Job Start Date Job End Date Not on file Not on file Not on file Not on file documented as of this encounter Plan of Treatment Not on file documented as of this encounter Procedures Procedure Name Priority Date/Time Associated Diagnosis Comments CBC WITH DIFFERENTIAL Routine 05/14/2017 6:00 AM CDT URIC ACID Routine 05/14/2017 6:00 AM CDT TSH Routine 05/14/2017 6:00 AM CDT IRON LEVEL Routine 05/14/2017 6:00 AM CDT LIPID PANEL Routine 05/14/2017 6:00 AM CDT COMPREHENSIVE METABOLIC PANEL Routine 05/14/2017 6:00 AM CDT documented in this encounter Results * URIC ACID (05/14/2017 6:00 AM CDT) [facility] URIC ACID 6.2 3.5 - 7.2 mg/dL 05/14/2017 5:12 PM CDT [facility] Blood Collection / Unknown 05/14/2017 6:00 AM CDT 05/14/2017 11:58 AM CDT Skyler Reyes MD CHEMISTRY ORDERABLES Final Res ult Performing Organization Address City/[facility]/ZIP Co de Phone Number [facility] CLIA# [id number] [address] [place], [place] [id number] * IRON LEVEL (05/14/2017 6:00 AM CDT) [facility] IRON 92 65 - 175 ug/dL 05/14/2017 5:12 PM CDT [facility] Blood Collection / Unknown 05/14/2017 6:00 AM CDT 05/14/2017 11:58 AM CDT Skyler Reyes MD CHEMISTRY ORDERABLES Final Res ult Performing Organization Address City/[facility]/ZIP Co de Phone Number [facility] CLIA# [id number] [address] [place] [address] * (ABNORMAL) CBC WITH DIFFERENTIAL (05/14/2017 6:00 AM CDT) [facility] WBC 7.1 4.8 - 10.8 K/uL 05/14/2017 1:31 PM CDT [facility] RBC 4.74 4.60 - 6.20 M/uL 05/14/2017 1:31 PM CDT [facility] HEMOGLOBIN 14.7 14.0 - 18.0 g/dL 05/14/2017 1:31 PM CDT [facility] [email or web address] [facility] HEMATOCRIT 42.9 41.0 - 53.0 % 05/14/2017 1:31 PM [facility] MCV 90.5 84.0 - 103.0 fL 05/14/2017 1:31 PM [facility] MCH 31.0 27.0 - 34.0 pg 05/14/2017 1:31 PM [facility] MCHC 34.3 30.0 - 35.0 g/dL 05/14/2017 1:31 PM [facility] RDW 12.6 11.0 - 14.5 % 05/14/2017 1:31 PM [facility] RDW-STDEV 41.2 37.0 - 54.0 fL 05/14/2017 1:31 PM [facility] PLATELETS 266 140 - 440 K/uL 05/14/2017 1:31 PM [facility] [email or web address] [facility] MPV 10.2 8.9 - 12.8 fL 05/14/2017 1:31 PM [facility] NEUTROPHILS 43 42 - 75 % 05/14/2017 1:31 PM [facility] LYMPHOCYTES 37 24 - 44 % 05/14/2017 1:31 PM [facility] MONOCYTES 12(H) 2 - 10 % 05/14/2017 1:31 PM [facility] EOSINOPHILS 7 0 - 7 % 05/14/2017 1:31 PM [facility] BASOPHILS 1 0 - 1 % 05/14/2017 1:31 PM [facility] IMMATURE GRANULOCYTES 0 0 - 2 % 05/14/2017 1:31 PM [facility] NEUTROPHIL ABSOLUTE 3.05 2.00 - 8.00 K/uL 05/14/2017 1:31 PM [facility] LYMPHOCYTE ABSOLUTE 2.62 1.20 - 4.00 K/uL 05/14/2017 1:31 PM [facility] MONOCYTE ABSOLUTE 0.84(H) 0.10 - 0.60 K/uL 05/14/2017 1:31 PM CDT [facility] EOSINOPHIL ABSOLUTE 0.48 0.00 - 0.70 K/uL 05/14/2017 1:31 PM CDT [facility] BASOPHILS ABSOLUTE 0.05 0.00 - 0.20 K/uL 05/14/2017 1:31 PM CDT [facility] IMMATURE GRANULOCYTES ABSOLUTE 0.03 0.00 - 0.10 K/uL 05/14/2017 1:31 PM CDT [facility] Blood Collection / Unknown 05/14/2017 6:00 AM CDT 05/14/2017 11:58 AM CDT Skyler Reyes MD HEMATOLOGY ORDERABLES Final Re sult Performing Organization Address [facility]/ZIP Co de Phone Number [facility] CLIA# [id number] [address] [place] [phone] * TSH (05/14/2017 6:00 AM CDT) Pathologist [facility] TSH 2.31 0.36 - 3.74 uIU/mL 05/14/2017 5:12 PM T [facility] Blood Collection / Unknown 05/14/2017 6:00 AM CDT 05/14/2017 11:58 AM CDT us Skyler Reyes MD CHEMISTRY ORDERABLES Final Res ult Performing Organization Address City/[facility]/ZIP Co de Phone Number [facility] CLIA# [id number] [address] [place] [phone] * (ABNORMAL) LIPID PANEL (05/14/2017 6:00 AM CDT) CHOLESTEROL 167 <200 mg/dL 05/14/2017 5:12 PM CDT [facility] TRIGLYCERIDE 169(H) <150 mg/dL 05/14/2017 5:12 PM CDT [facility] HDL 48 40 - 59 mg/dL 05/14/2017 5:12 PM CDT [facility] LDL CALCULATED 85 <100 mg/dL 05/14/2017 5:12 PM CDT [facility] NON-HDL CHOLESTEROL 119 <130 mg/dL 05/14/2017 5:12 PM [facility] Blood Collection / Unknown 05/14/2017 6:00 AM CDT 05/14/2017 11:[address] [facility] - 05/14/2017 5:12 PM CDT TOTAL CHOLESTEROL mg/dL Desirable <200 [...] Guidelines Reference Ranges for Lipid Panels (NCEP/AMA) Skyler Reyes MD CHEMISTRY ORDERABLES Final Res ult [facility] CLIA# [id number] [address] [place] [phone] * (ABNORMAL) COMPREHENSIVE METABOLIC PANEL (05/14/2017 6:00 AM CDT) SODIUM 142 136 - 145 mmol/L 05/14/2017 5:12 PM CDT [facility] POTASSIUM 4.2 3.5 - 5.1 mmol/L 05/14/2017 5:12 PM T [facility] CHLORIDE 105 98 - 107 mmol/L 05/14/2017 5:12 PM T [facility] CO2 28 21 - 32 mmol/L 05/14/2017 5:12 PM CDT [facility] CALCIUM 8.6 8.4 - 10.1 mg/dL 05/14/2017 5:12 PM T [facility] BUN 22(H) 7 - 18 mg/dL 05/14/2017 5:12 PM [facility] CREATININE 1.24 0.70 - 1.30 mg/dL 05/14/2017 5:12 PM [facility] GLUCOSE 92 74 - 106 mg/dL 05/14/2017 5:12 PM [facility] TOTAL PROTEIN 7.2 6.4 - 8.2 g/dL 05/14/2017 5:12 PM [facility] ALBUMIN 4.6 3.4 - 5.0 g/dL 05/14/2017 5:12 PM [facility] BILIRUBIN TOTAL 0.8 0.2 - 1.0 mg/dL 05/14/2017 5:12 PM [facility] ALKALINE PHOSPHATASE 83 45 - 117 U/L 05/14/2017 5:12 PM [facility] AST 30 15 - 37 U/L 05/14/2017 5:12 PM [facility] ALT 45 13 - 61 U/L 05/14/2017 5:12 PM [facility] GFR 60 >=60 mL/min/1.7 3 sq meter 05/14/2017 5:12 PM [facility] Comment: eGFR has not been validated [...] GFR, >60 >=60 mL/min/1.7 3 sq meter 05/14/2017 5:12 PM [facility] ANION GAP 9 4 - 30 mmol/L 05/14/2017 5:12 PM [facility] Blood Collection / Unknown 05/14/2017 6:00 AM CDT 05/14/2017 11:58 AM T us Skyler Reyes MD CHEMISTRY ORDERABLES Final Res ult [facility] [id number] [facility] [place] [address] documented in this encounter Visit Diagnoses Not on filedocumented in this encounter Additional Health Concerns Infection Onset Date Last Indicated Resolved Time COVID-19 09/16/2020 09/16/2020 10/16/2020 8:09 PM RECREATIONAL FACILITIES MOTEL MANAGER R/O COVID-19 03/30/2021 03/30/2021 03/30/2021 7:26 PM CDT documented as of this encounter Care Teams Car Tracer Relationship Specialty Start Date End Date Vilma Harry MD PCP - General Internal Medicine 11/04/17 documented as of this encounter
--- OUTSIDE RECORDS SUMMARY | 2025-06-15 11:59 | XMS_ITS | Encounter Summary ---
Author Organization [facility] Address [address] [place] [address] Care Team Providers Care Top Stitcher Name Role Phone Vilma Harry MD Primary Care Provider Unavail able Encounter Details Date Type Department Care Team (Late st Contact Info) Description 09/17/2020 Telephone [facility] [place] [facility] - [facility] [address] [place] [place] [address] Jason Wong MD [address] [place] [address] Social History Tobacco Use Types Packs/Day Years Used Date Smoking Tobacco: Never Smokeless Tobacco: Never Alcohol Use Standard Drinks/Week Comments No 0 (1 standard drink = 0.6 oz pur e alcohol) Sex and Gender Information Value Date Recorded Sex Assigned at Not on file Legal Sex Male 4:40 AM GATE WATCH Gender Identity Not on file Sexual Orientation Not on file Occupation Industry Job Start Date Job End Date Not on file Not on file Not on file Not on file COVID-19 Exposure Response Date Recorded In the last month, have you been in contact with someone who was confirmed or suspected to have Coronavirus / COVID-19? No / Unsure 09/13/2020 4:33 PM GATE WATCH documented as of this encounter Miscellaneous Notes * Telephone Encounter - Cristal Chapman - 09/17/2020 12:48 PM CST Patient called back. Check to see if he was having symptoms, stated just a small cough but nothing else. Informed his covid test came back positive and to quarantine and to contact PCP and health department. Patient verbalized and understood. WATCH * Telephone Encounter - Cristal Chapman - 09/17/2020 12:43 PM CST Tried to reach the patient, got a voicemail. WATCH documented in this encounter Plan of Treatment Not on file documented as of this encounter Visit Diagnoses Not on filedocumented in this encounter Additional Health Concerns Infection Onset Date Last Indicated Resolved Time COVID-19 09/16/2020 09/16/2020 10/16/2020 8:09 PM GATE WATCH R/O COVID-19 03/30/2021 03/30/2021 03/30/2021 7:26 PM CDT documented as of this encounter Care Teams Top Stitcher Relationship Specialty Start Date End Date Vilma Harry MD PCP - General Internal Medicine 11/04/17 documented as of this encounter
--- OUTSIDE RECORDS SUMMARY | 2025-06-15 11:59 | XMS_ITS | Encounter Summary ---
Author Organization [facility] Address [address] [place] [address] Care Team Providers Care Director Of Golf Name Role Phone Vilma Harry MD Primary Care Provider Unavail able Encounter Details Date Type Department Care Team (Latest Contact Info) Description 07/23/1999 Outpatient Historical [facility] Jose Luis Fajardo MD [address] [place] [address] Nonallopathic lesion of abdomen and other sites, not elsewhere classified (Primary Dx) Social History Tobacco Use Types Packs/Day Years Used Date Smoking Tobacco: Never Assessed Sex and Gender Information Value Date Recorded Sex Assigned at Not on file Legal Sex Male 4:40 AM HOSPICE MANAGER Gender Identity Not on file Sexual Orientation Not on file documented as of this encounter Plan of Treatment Not on file documented as of this encounter Visit Diagnoses Diagnosis Nonallopathic lesion of abdomen and other sites, not elsewhere classified- Primary documented in this encounter Additional Health Concerns Infection Onset Date Last Indicated Resolved Time COVID-19 09/16/2020 09/16/2020 10/16/2020 8:09 PM HOSPICE MANAGER R/O COVID-19 03/30/2021 03/30/2021 03/30/2021 7:26 PM CDT documented as of this encounter Care Teams Director Of Golf Relationship Specialty Start Date End Date Vilma Harry MD PCP - General Internal Medicine 11/04/17 documented as of this encounter
--- OUTSIDE RECORDS SUMMARY | 2025-06-15 11:59 | XMS_ITS | Encounter Summary ---
Author Organization [facility] Address [address] [place] [address] Care Team Providers Care Java Developer Analyst Name Role Phone Vilma Harry MD Primary Care Provider Unavail able Encounter Details Date Type Department Care Team (Latest Contact Info) Description 08/18/2006 Outpatient Historical [facility] [address] [place] [address] Jason Mota MD NO ADDRESS ON FILE Derangement of Posterior Horn of Medial Meniscus (Primary Dx); Chondromalacia Patellae; Pain in Joint, Lower Leg Social History Tobacco Use Types Packs/Day Years Used Date Smoking Tobacco: Never Assessed Sex and Gender Information Value Date Recorded Sex Assigned at Not on file Legal Sex Male 4:40 AM ADVANCED NURSING PROFESSOR Gender Identity Not on file Sexual Orientation Not on file documented as of this encounter Plan of Treatment Not on file documented as of this encounter Visit Diagnoses Diagnosis Derangement of posterior horn of medial meniscus- Primary Chondromalacia patellae Chondromalacia of patella Pain in joint, lower leg documented in this encounter Additional Health Concerns Infection Onset Date Last Indicated Resolved Time COVID-19 09/16/2020 09/16/2020 10/16/2020 8:09 PM ADVANCED NURSING PROFESSOR R/O COVID-19 03/30/2021 03/30/2021 03/30/2021 7:26 PM CDT documented as of this encounter Care Teams Java Developer Analyst Relationship Specialty Start Date End Date Vilma Harry MD PCP - General Internal Medicine 11/04/17 documented as of this encounter
--- OUTSIDE RECORDS SUMMARY | 2025-06-15 11:59 | XMS_ITS | Encounter Summary ---
Author Organization [facility] Address [address] [place] [address] Care Team Providers Care Surface Lay Out Technician Name Role Phone Vilma Harry MD Primary Care Provider Unavail able Encounter Details Date Type Department Care Team (Latest Contact Info) Description 06/08/1999 Outpatient Historical [facility] Jose Luis Fajardo MD [address] [place] [address] Unspecified sinusitis (chronic) (Primary Dx); Reflex sympathetic dystrophy, unspecified; Lumbago; Nonallopathic lesion of abdomen and other sites, not elsewhere classified Social History Tobacco Use Types Packs/Day Years Used Date Smoking Tobacco: Never Assessed Sex and Gender Information Value Date Recorded Sex Assigned at Not on file Legal Sex Male 4:40 AM ENGINEER STATION MAINLINE Gender Identity Not on file Sexual Orientation Not on file documented as of this encounter Plan of Treatment Not on file documented as of this encounter Visit Diagnoses Diagnosis Unspecified sinusitis (chronic)- Primary Reflex sympathetic dystrophy, unspecified Lumbago Nonallopathic lesion of abdomen and other sites, not elsewhere classified documented in this encounter Additional Health Concerns Infection Onset Date Last Indicated Resolved Time COVID-19 09/16/2020 09/16/2020 10/16/2020 8:09 PM ENGINEER STATION MAINLINE R/O COVID-19 03/30/2021 03/30/2021 03/30/2021 7:26 PM CDT documented as of this encounter Care Teams Surface Lay Out Technician Relationship Specialty Start Date End Date Vilma Harry MD PCP - General Internal Medicine 11/04/17 documented as of this encounter
--- OUTSIDE RECORDS SUMMARY | 2025-06-15 11:59 | XMS_ITS | Encounter Summary ---
Author Organization [facility] Address [address] [place] [address] Care Team Providers Care Clam Bed Worker Name Role Phone Vilma Harry MD Primary Care Provider Unavail able Encounter Details Date Type Department Care Team (Latest Contact Info) Description 07/24/2000 Outpatient Historical [facility] Efraín Ward MD Esophageal reflux (Primary Dx); Acute pharyngitis; Acute upper respiratory infections of unspecified site Social History Tobacco Use Types Packs/Day Years Used Date Smoking Tobacco: Never Assessed Sex and Gender Information Value Date Recorded Sex Assigned at Not on file Legal Sex Male 4: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 AND 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 Gender Identity Not on file Sexual Orientation Not on file documented as of this encounter Plan of Treatment Not on file documented as of this encounter Visit Diagnoses Diagnosis Esophageal reflux- Primary Acute pharyngitis Acute upper respiratory infections of unspecified site documented in this encounter Additional Health Concerns Infection Onset Date Last Indicated Resolved Time COVID-19 09/16/2020 09/16/2020 10/16/2020 8:09 PM MOTORS AND 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 R/O COVID-19 03/30/2021 03/30/2021 03/30/2021 7:26 PM CDT documented as of this encounter Care Teams Clam Bed Worker Relationship Specialty Start Date End Date Vilma Harry MD PCP - General Internal Medicine 11/04/17 documented as of this encounter
--- OUTSIDE RECORDS SUMMARY | 2025-06-15 11:59 | XMS_ITS | Encounter Summary ---
Author Organization [facility] Address [address] [place] [address] Care Team Providers Care Patient Registration Rep Name Role Phone Vilma Harry MD Primary Care Provider Unavail able Encounter Details Date Type Department Care Team (Latest Contact Info) Description 08/22/2000 Outpatient Historical [facility] Efraín Ward MD Esophageal reflux (Primary Dx) Social History Tobacco Use Types Packs/Day Years Used Date Smoking Tobacco: Never Assessed Sex and Gender Information Value Date Recorded Sex Assigned at Not on file Legal Sex Male 4:40 AM SHIRRER Gender Identity Not on file Sexual Orientation Not on file documented as of this encounter Plan of Treatment Not on file documented as of this encounter Visit Diagnoses Diagnosis Esophageal reflux- Primary documented in this encounter Additional Health Concerns Infection Onset Date Last Indicated Resolved Time COVID-19 09/16/2020 09/16/2020 10/16/2020 8:09 PM SHIRRER R/O COVID-19 03/30/2021 03/30/2021 03/30/2021 7:26 PM CDT documented as of this encounter Care Teams Patient Registration Rep Relationship Specialty Start Date End Date Vilma Harry MD PCP - General Internal Medicine 11/04/17 documented as of this encounter
--- OUTSIDE RECORDS SUMMARY | 2025-06-15 11:59 | XMS_ITS | Encounter Summary ---
Author Organization [facility] Address [address] [place] [address] Care Team Providers Care Exchange Architect Name Role Phone Vilma Harry MD Primary Care Provider Unavail able Encounter Details Date Type Department Care Team (Latest Contact Info) Description 06/03/2000 Outpatient Historical [facility] Jose Luis Fajardo MD [address] [place] [address] Acute infection of pinna (Primary Dx); Nonallopathic lesion of abdomen and other sites, not elsewhere classified; Nonallopathic lesion of thoracic region, not elsewhere classified Social History Tobacco Use Types Packs/Day Years Used Date Smoking Tobacco: Never Assessed Sex and Gender Information Value Date Recorded Sex Assigned at Not on file Legal Sex Male 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 Gender Identity Not on file Sexual Orientation Not on file documented as of this encounter Plan of Treatment Not on file documented as of this encounter Visit Diagnoses Diagnosis Acute infection of pinna- Primary Nonallopathic lesion of abdomen and other sites, not elsewhere classified Nonallopathic lesion of thoracic region, not elsewhere classified documented in this encounter Additional Health Concerns Infection Onset Date Last Indicated Resolved Time COVID-19 09/16/2020 09/16/2020 10/16/2020 8:09 PM MACHINE 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 R/O COVID-19 03/30/2021 03/30/2021 03/30/2021 7:26 PM CDT documented as of this encounter Care Teams Exchange Architect Relationship Specialty Start Date End Date Vilma Harry MD PCP - General Internal Medicine 11/04/17 documented as of this encounter
--- OUTSIDE RECORDS SUMMARY | 2025-06-15 11:59 | XMS_ITS | Encounter Summary ---
Author Organization [facility] Address [address] [place] [address] Care Team Providers Care Cotton Picker Operator Name Role Phone Vilma Harry MD Primary Care Provider Unavail able Encounter Details Date Type Department Care Team (Latest Contact Info) Description 07/03/1999 Outpatient Historical [facility] Dann Roberson NO ADDRESS ON FILE Hip, thigh, leg, and ankle, abrasion or friction burn, infected (Primary Dx); Cellulitis and abscess of leg, except foot Social History Tobacco Use Types Packs/Day Years Used Date Smoking Tobacco: Never Assessed Sex and Gender Information Value Date Recorded Sex Assigned at Not on file Legal Sex Male 4:40 AM MEDICAID BILLER Gender Identity Not on file Sexual Orientation Not on file documented as of this encounter Plan of Treatment Not on file documented as of this encounter Visit Diagnoses Diagnosis Hip, thigh, leg, and ankle, abrasion or friction burn, infected- Primary Cellulitis and abscess of leg, except foot documented in this encounter Additional Health Concerns Infection Onset Date Last Indicated Resolved Time COVID-19 09/16/2020 09/16/2020 10/16/2020 8:09 PM MEDICAID BILLER R/O COVID-19 03/30/2021 03/30/2021 03/30/2021 7:26 PM CDT documented as of this encounter Care Teams Cotton Picker Operator Relationship Specialty Start Date End Date Vilma Harry MD PCP - General Internal Medicine 11/04/17 documented as of this encounter
--- OUTSIDE RECORDS SUMMARY | 2025-06-15 12:00 | XMS_ITS | Encounter Summary ---
Author Organization [facility] Address [address] [place] [address] Care Team Providers Care Junk Dealer Name Role Phone Vilma Harry MD Primary Care Provider Unavail able Encounter Details Date Type Department Care Team (Latest Contact Info) Description 07/24/2005 Outpatient Historical [facility] Gen Spec Surg [place] [address] [place] [address] Musa Coello MD NO ADDRESS ON FILE ESOPHAGEAL REFLUX (Primary Dx) Social History Tobacco Use Types Packs/Day Years Used Date Smoking Tobacco: Never Assessed Sex and Gender Information Value Date Recorded Sex Assigned at Not on file Legal Sex Male 4:40 AM BRIM POUNCING MACHINE OPERATOR Gender Identity Not on file Sexual Orientation Not on file documented as of this encounter Plan of Treatment Not on file documented as of this encounter Visit Diagnoses Diagnosis Esophageal reflux- Primary documented in this encounter Additional Health Concerns Infection Onset Date Last Indicated Resolved Time COVID-19 09/16/2020 09/16/2020 10/16/2020 8:09 PM BRIM POUNCING MACHINE OPERATOR R/O COVID-19 03/30/2021 03/30/2021 03/30/2021 7:26 PM CDT documented as of this encounter Care Teams Junk Dealer Relationship Specialty Start Date End Date Vilma Harry MD PCP - General Internal Medicine 11/04/17 documented as of this encounter
[2025-06-15 12:01] VITALS: BP 159/88; PULSE 101; RESP 16; TEMP 36.6; O2SAT 97
--- NOTE | 2025-06-15 12:02 | XR_ITS ---
WS: [id number] Left hand, 3 views, 06/15/2025 Clinical Data: injury Comparison: None. Findings: There is a soft tissue injury to the distal phalanx of the left second finger. There may be minimal avulsion of the ungual tuft. A surgical dressing obscures detail. The remainder of the hand shows no abnormality. XR/XR hand LT min 3V* [id number] Impression: Soft tissue injury to ungual tuft of distal phalanx of the left second finger w ith possible minimal avulsion of the bony portion of the ungual tuft.
--- NOTE | 2025-06-15 14:51 | ED_ITS ---
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 Tetanus up-to-date. Patient notes that his skin is missing from his finger distally on the last palmar side/phalanx. Nail has not been disturbed. There is ecchymosis under his nail. Bleeding was con trolled and the area was covered/wrapped. On x-ray distal phalanx of the left index finger was noted. This area was completely degloved. Related Data Previous Rx's ?Medication ?Instructions ?Recorded cephalexin 500 mg capsule 500 mg PO BID 10 days #20 ca ps 06/15/25 Allergies Allergy/AdvReac Type Severity Reaction Status Date / Time erythromycin base Allergy Unknown Unknown Verified 06/15/25 12:03 Physical Exam Const: COMMON NORMALS: no acute distress, average body habitus and patient oriented x3 EXAM LIMITATIONS: altered mental status GENERAL APPEARANCE: cooperative and comfortable HENMT: COMMON NORMALS: normocephalic, atraumatic and hearing grossly normal bilaterally HEAD & SCALP: normocephalic and atraumatic Eye: COMMON NORMALS: Equal, round and reactive pupils present, EOMs intact sawyer aterally and conjunctivae normal CONJUNCTIVA: Yes conjunctivae normal PUPIL: Yes Equal, round and reactive pupils present Neck/C-Spine: COMMON NORMALS: full ROM, no lymphadenopathy, supple and no meningeal signs Lymph: LYMPHATIC: no lymphadenopathy noted Chest: COMMONS NORMALS: normal inspection of the chest and normal palpation of entire chest wall Resp: COMMON NORMALS: normal respiratory effort, No retractions and clear to auscultation bilaterally AUSCULTATION: clear to auscultation bilaterally Cardio: COMMON NORMALS: regular rate and regular rhythm RATE: regular rate RHYTHM: regular rhythm GI: COMMON NORMALS: Normal to inspection, nondistended, normoactive bowel sounds present, Soft to palpation and non-tender PALPATION: Yes Soft to palpation : COMMON NORMALS: Yes no CVA tenderness BLADDER/KIDNEY EXAM: Yes no CVA tenderness Back/Pelvis: COMMON NORMALS: no CVA tenderness Extremity: LEFT UPPER EXTREMITY: Yes hand & digits Left hand and digits: Yes inspection (open, degloved jiménez distal phalanx without disturb nail.) and Yes palpation (Tenderness) Neuro: COMMON NORMALS: patient oriented x3 MENINGEAL SIGNS: Yes no meningeal signs Procedures Joint Aspiration/Injection Joint Asp./Inject. 1: Time Out Performed: Yes Side of body: left Local Anesthetic: lidocaine 1% Amount of anesthesia used (mL): 4 Needle Size Used: Other Additional Comments: Digital block to left index finger x 5 mL. Tolerated well and then wound care was done. This area was vigorously cleaned with Hibiclens, placed mupirocin, Vaseline gauze, and wrapped with nonadherent dressing, and Coban, and placed in frog splint. Course Consultations: Consultation #1: Discussed with Dr. Peres. Recommends washing, dressing and seeing soon in clinic. IM Rocephin and p.o. antibiotics. He would like to see him tomorrow in clinic. Vital Signs: Vital signs: Vital Signs Temperature 97.9 F 06/15/25 12:01 Pulse Rate 70 06/15/25 16:47 Respiratory Rate 18 06/15/25 16:47 Blood Pressure 118/64 06/15/25 16:47 Pulse Oximetry 96 06/15/25 16:47 Oxygen Delivery Me thod Room Air 06/15/25 12:01 MDM - Wound/Laceration Medical Decision Making Discussed the case with Dr. Peres, that plans on close follow-up. Rocephin IM was given x 1, and cephalexin was sent to the pharmacy for ongoing use. He will evaluate this hand in clinic tomorrow. Wound care has been given with mupirocin, Vaseline gauze, and wrapping, as well as a frog splint with his distal phalanx open fracture. All of their questions were answered to their satisfaction peer Lab Data Radiology Impressions Hand X-Ray 06/15/25 12:02 Impression: Soft tissue injury to ungual tuft of distal phalanx of the left second finger with possible minimal avulsion of the bony portion of the ungual tuft. All radiology interpretation(s) finalized by discharge Discharge Plan Discharge Patient Disposition: Home Clinical Impression: Fracture of distal phalanx of left index finger, Degloving injury of left upper extremity Condition: Stable Prescriptions: New cephalexin 500 mg capsule 500 mg PO BID 10 Days Qty: 20 0RF Discharge Orders: Discharge ED (Routine); Ordered 06/15/25 Ordered By: Loida Rich Referrals: Dominic Peres MD [Physician, Orthopedics] Anders Meek DO [Primary Care Provider, [facility]] Discharge Diet: Usual diet Discharge Activity: Resume usual activity Patient Instructions: Fractures - Phalanx (Finger), Skin Avulsion (ED), Pain Management, Patient Portal & Jakub Instructions, Opioid Safety Activity Restrictions/Additional Instructions: Wear the splint on your left index finger. Go to Dr. Peres tomorrow for appointment. Call today for your follow-up appointment tomorrow. Wound dressing: Wash this area, apply the mupirocin, then Vaseline gauze, nonadherent dressing, then splint. Return to ED for worsening redness, worsening pain, fever greater 100.4 ?F Take a probiotic or utilize active culture yogurt to avoid infectious diarrhea Print Language: Tamazight Coding Level of Care Code ED Glass Blower Helper for Kofi Temple
[2025-06-15] MEDS: HYDROcodone-acetaminophen 10-325 mg Tablet 1 TAB PO (15:20)
[2025-06-15] MEDS: mupirocin oint 22 gm 1 APPLIC TOPICAL (15:22)
[2025-06-15] MEDS: cefTRIAXone 1,000 MG in water for injection-sterile 2.1 ML 2.1 MG IM (15:55)
[2025-06-15 16:47] VITALS: BP 118/64; PULSE 70; RESP 18; O2SAT 96
== END 2025-06-15 16:48 | disposition home or self-care (01) ==
PROVIDERS: Emergency Provider Physician Assistant; PCP Electrodiagnostic Medicine
DX: S62.631A Displaced fracture of distal phalanx of left index finger, initial encounter for closed fracture (principal); S61.402A Unspecified open wound of left hand, initial encounter; W23.0XXA Caught, crushed, jammed, or pinched between moving objects, initial encounter
CPT/HCPCS: 73130; 96372; 99284; J0696; J9999

== ENCOUNTER → 2025-06-16 10:32 | Outpatient (BNVA) | payer MEDICARE, BC, SELFPAY | PROVIDERS: PCP Electrodiagnostic Medicine; Referring Provider Physician Assistant; Visit Provider Orthopaedic Surgery | DX: S62.661A Nondisplaced fracture of distal phalanx of left index finger, initial encounter for closed fracture (principal); S61.211A Laceration without foreign body of left index finger without damage to nail, initial encounter; W20.8XXA Other cause of strike by thrown, projected or falling object, initial encounter | CPT/HCPCS: 99204 ==

== ENCOUNTER → 2025-06-23 08:02 | Outpatient (BNVA) | payer MEDICARE, BC, SELFPAY | PROVIDERS: PCP Electrodiagnostic Medicine; Visit Provider Orthopaedic Surgery | DX: S68.111D Complete traumatic metacarpophalangeal amputation of left index finger, subsequent encounter (principal); X58.XXXD Exposure to other specified factors, subsequent encounter | CPT/HCPCS: 99213 ==